=== PATIENT | female | born 1935 | race Caucasian/White ===

== ENCOUNTER 2024-11-29 08:00 | Inpatient (IN) | payer MEDICARE, SELFPAY ==
[2024-11-29] VITALS (16 sets, daily range): BP systolic 88–107; BP diastolic 57–81; PULSE 79–126; RESP 17–25; TEMP 36.4–36.6; O2SAT 95–100; BMI 22.4
--- NOTE | ~2024-11-29 | XR_ITS ---
Portable chest x-ray Comparison: None Clinical History: Weakness Findings: Lungs are clear, without focal consolidation or pleural effusion. Cardiomediastinal silho uette is unremarkable. Bones and soft tissues are unremarkable. Impression: Clear lungs. Reviewed, dictated and finalized at location M. Impression: Clear lungs.
--- NOTE | ~2024-11-29 | CT_ITS ---
Clinical Indication: Trauma, abdominal pain CT Scan of the Chest, Abdomen, and Pelvis with Contrast: Technique: Contiguous sections were acquired throughout the chest, abdomen, and pelvis after intraven ous administration of 100 cc of Omnipaque 350. Dose reduction technique was used on this scan by que guzmán automated exposure control and iterative reconstruction technique. The dose-length product (DL P) was 405.23 mGy-cm. Findings: There is no evidence of any significant mediastinal, hilar or axillary lymphadenopathy. The mediastin al soft tissues and vascular structures appear normal. There is no evidence of pleural or pericardial effusion. The lungs are clear. No pulmonary nodules or infiltrates are noted. The liver, spleen, pancreas, adrenals and right kidney are within normal limits. Suggestion of patchy decreased enhancement in the left kidney, suggestive of pyelonephritis. There is also probable hyper enhancement of the urothelium of the left ureter. Cholecystectomy clips are present. No evidence of a ortic aneurysm. No lymphadenopathy. No bowel obstruction or bowel wall thickening. There is no evidence to suggest acute appendicitis. Diffuse urinary bladder wall thickening present. No pelvic mass seen. No ascites. L1 vertebroplasty present. There are additional compression fractures of T12, L2, and L3. Possible mi nimal compression deformity of the superior endplate of T8. Impression: Findings suspicious for left pyelonephritis and probable ascending infection involving the urothelium of the left ureter. Cystitis. Multiple compression fractures, as detailed above, age-indeterminate. Correlate with clinical symptom atology. Consider MR to evaluate for acute marrow edema as indicated. Reviewed, dictated and finalized at [facility]. Impression: Findings suspicious for left pyelonephritis and probable ascending infection in volving the urothelium of the left ureter. Cystitis. Multiple compression fractures, as detailed above, age-indeterminate. Correlate with clinical symptomatology. Consider MR to evaluate for acute marrow edema a s indicated.
--- NOTE | ~2024-11-29 | CT_ITS ---
Noncontrast CT scan of the cervical spine Technique: Multiple contiguous axial [address] images of the cervical spine were obtained and rec onstructed in 2D sagittal and coronal planes on the acquisition scanner. Dose reduction technique was used on this scan by utilizing automated exposure control, adjustment of the mA and/or kV according to patient size. The dose-length product (DLP) was 165.76 mGy-cm. Clinical History: Pain Findings: No fractures or dislocations. There is advanced degenerative disc changes throughout the c ervical spine. There is extensive facet arthropathy in the cervical spine. There is probable mild nikolai ateral neural foraminal narrowing at C2-C3. There is severe right neural foraminal narrowing at C3-C4 with severe right facet arthropathy. There is severe bilateral neural foraminal narrowing at C4-C5 a nd C5 and C6 and C6-C7. No prevertebral soft tissue swelling. Impression: No fracture or subluxation of the cervical spine. Advanced degenerative spondylosis, as detailed above. Reviewed, dictated and finalized at [facility]. Impression: No fracture or subluxation of the cervical spine. Advanced degenerative spondylosis, as detailed above.
--- NOTE | ~2024-11-29 | US_ITS ---
US renal BI 12/05/2024 11:59 Procedure: Realtime transabdominal ultrasound of the kidneys and bladder. Indication: Leukocytosis. Follow-up pyelonephritis. Comparison: CT dated 11/29/2024 Findings: Renal echotexture is normal bilaterally without hydronephrosis, contour deforming mass or r enal calculus. The right kidney measures 10.5 cm and left kidney measures 13.5 cm. Bladder within no rmal limits. Impression: 1: Unremarkable renal ultrasound. No stones, masses or hydronephrosis. Reviewed, dictated and finalized at location [facility]. Impression: 1: Unremarkable renal ultrasound. No stones, masses or hydronephrosis.
--- NOTE | ~2024-11-29 | XR_ITS ---
Left Shoulder Technique: AP and scapular Y views were obtained. Clinical History: Pain Findings: No fracture or dislocation is seen. Osseous alignment is anatomic. The glenohumeral and acr omioclavicular joint spaces are preserved. Soft tissues are unremarkable. Impression: Unremarkable left shoulder radiographs. Reviewed, dictated and finalized at [facility]. Impression: Unremarkable left shoulder radiographs.
--- NOTE | ~2024-11-29 | CT_ITS ---
CT head without contrast Indication: Head injury Technique: Serial scans were obtained through the brain without the administration of contrast. Dose reduction technique was used on this scan by utilizing automated exposure control and iterative recon struction technique. The dose-length product (DLP) was 605.33 mGy-cm. Findings: There is no evidence of intracranial hemorrhage, mass lesion, or acute infarct. The ventri cles and subarachnoid spaces are dilated, consistent with moderate to advanced atrophy. Low attenuat ion regions are seen within the periventricular white matter bilaterally, likely representing changes from chronic microvascular ischemic disease. There is no evidence of edema, mass effect or midline shift. The visualized paranasal sinuses and mastoid air cells are clear. Impression: No intracranial hemorrhage, mass, or acute infarct. Atrophy and chronic white matter changes, as above. Reviewed, dictated and finalized at location . Impression: No intracranial hemorrhage, mass, or acute infarct. Atrophy and chronic white matter changes, as above.
--- NOTE | 2024-11-29 08:11 | ECG_ITS ---
Test Date: 2024-11-29 08:22:16 Measurements Intervals [place] Rate: 127 P: 0 DE: 0 QRS: -26 QRSD: 92 T: 94 QT: 334 QTc: 486 Interpretive Statements ATRIAL FIBRILLATION WITH RAPID VENTRICULAR RESPONSE BORDERLINE LEFT AXIS DEVIATION [QRS AXIS < -20] NONSPECIFIC ST & T-WAVE ABNORMALITY No previous ECG available for comparison Electronically Signed On 11-29-2024 14:06:42 CDT by Tomas Dooley M.D.
--- OUTSIDE RECORDS SUMMARY | 2024-11-29 08:17 | XMS_ITS | Clinical Summary ---
Author Organization [facility] Address [address] [place] [address] Care Team Providers Care Investment Officer Name Role Phone Eldon Mike MD Primary Care Provider [phone] Source Comments [facility],non-owned Affiliates and Associated Physician Practices is amultiple site organization consisting of ambulatory clinics and hospital sitesin [place], [place], [place] and [place]. This disclosure is being madepursuant to the Care Everywhere program and may not contain all information available regarding this patient. Last updated 18.[employer] [facility] Allergies No known active allergies Medications * This document contains information received from the source organization and may not represent a complete record from that organization. * Be aware that medications may not be up to date on this document. Alwaysverify current medications with the patient. 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 Active fluticasone propionate (FLONASE) 50 MCG/ACT nasal sprayIndicatio ns:Allergic Rhinitis Oxly 2 sprays into each nostril once daily Reasons: Allergic Rhinitis Active levothyroxine (SYNTHROID) 100 MCG tabletIndicati ons:Hypothyroi dism Take 100 mcg by mouth daily before breakfast Reasons: Underactive Thyroid Active metoprolol tartrate (LOPRESSOR) 25 MG tabletIndicati ons:Hypertensi on Take 25 mg by mouth 2 times daily Reasons: High Blood Pressure Disorder Active omeprazole (PRILOSEC) 20 MG capsuleIndicat ions:Heartburn Take 20 mg by mouth once daily as needed for Heartburn Reasons: Heartburn Active traMADol (ULTRAM) 50 MG tabletIndicati ons:chronic pain, right shoulder Take 50 mg by mouth 2 times daily as needed for Pain Reasons: chronic pain, right shoulder Active pravastatin (PRAVACHOL) 20 MG tabletIndicati ons:Hypertrigl yceridemia Take 20 mg by mouth once daily Reasons: High Amount of Triglycerides in the Blood Active QUEtiapine (SEROQUEL) 100 MG tabletIndicati ons:Depression /Psychosis Take 1 tablet by mouth at bedtime Reasons: Depression/Psycho sis 30 tablet 1 0 Active melatonin 3 MG tabletIndicati ons:Insomnia Take 1 tablet by mouth at bedtime Reasons: Trouble Sleeping 30 tablet 1 0 Active Active Problems Problem Noted Date Diagnosed Date Primary insomnia 04/05/2020 Moderate episode of recurrent major depressive d isorder 04/05/2020 Mild cognitive impairment 04/04/2020 Social History Tobacco Use Types Packs/Day Years Used Date Smoking Tobacco: Former Smokeless Tobacco: Never Alcohol Use Standard Drinks/Week Comments Not Currently 0 (1 standard drink = 0.6 oz pur e alcohol) Comments Unknown Sex and Gender Information Value Date Recorded Sex Assigned at Not on file Legal Sex Female 12:59 PM CDT Gender Identity Not on file Sexual Orientation Not on file Last Filed Vital Signs Vital Sign Reading Time Taken Comments Blood Pressure 109/42 04/09/2020 7:21 AM CDT Pulse 72 04/09/2020 7:21 AM CDT Temperature 36.7 C (98 F) 04/09/2020 7:21 AM CDT Respiratory Rate 16 04/09/2020 7:21 AM CDT Oxygen Saturation 95% 04/09/2020 7:21 AM CDT Inhaled Oxygen Concentration - - Weight 62.6 kg (138 lb) 04/06/2020 8:04 AM CDT Height 154.9 cm (5' 1) 04/06/2020 8:04 AM CDT Body Mass Index 26.07 04/06/2020 8:04 AM CDT Plan of Treatment Health Maintenance Due Date Last Done Comments BONE DENSITY TESTING 1934 DTAP/TDAP/TD VACCINES (1 - Tdap) 1953 PNEUMOCOCCAL VACCINE 50+ (1 of 1 - PCV) 1984 ZOSTER VACCINE (1 of 2) 1984 Respiratory Syncytial Virus (RSV) Vaccine Pt: or over 60 yrs (1 - 1-dose 75+ series) 2009 COVID-19 VACCINE (1 - 2023- season) 2024 DEPRESSION SCREENING 07/06/2024 INFLUENZA VACCINE (Season Ended) 2025 03/22/2020, 06/01/2019, 03/23/2018, Additional history exists HEPATITIS B VACCINE Aged Out No longe r eligible based on patient's age to complete this topic HIB VACCINE Aged Out No longer eligi ble based on patient's age to complete this topic HPV VACCINE Aged Out No longer eligi ble based on patient's age to complete this topic MENINGOCOCCAL (Group B) VACCINE SHARED DECISION-MAKING Aged Out No longer eligible based on patient's age to complete this topic MENINGOCOCCAL GROUPS A/C/Y/W VACCINE Aged Out No longer eligible based on patient's age to complete this topic [place] [address] MEDICARE Advance Directives * Full Code (Latest Code Status on File) Date Activated Date Inactivated Comments 04/04/2020 6:25 PM 04/09/2020 2:47 PM Care Teams Investment Officer Relationship Specialty Start Date End Date Eldon Mike MD PCP - General Internal Medicine 04/02/20
[2024-11-29] MEDS: SODIUM CHLORIDE 0.9% IV 1,000 ML 999 ML IV CONT ×2 (08:29→10:41)
[2024-11-29 08:44] LABS: Basophils Absolute Auto 0.1 K/mm3 (0.0-0.1); Basophils Percent Auto 0.4 % (0.2-1.2); Eosinophils Absolute Auto 0.1 K/mm3 (0-0.3); Eosinophils Percent Auto 0.8 % (0-4.4); Hematocrit 32.1 % (37.0-47.0); Hemoglobin 10.1 g/dL (12.0-15.0); Immature Granulocyte Absolute 0.93 K/mm3 (0.00-0.031); Immature Granulocyte Percent A 6.4 % (0-0.5); Lymphocytes Absolute Auto 2.92 K/mm3 (0.9-3.2); Lymphocytes Percent Auto 20.2 % (18.3-44.2); Mean Corpuscular HGB Conc 31.5 g/dl (32-36); Mean Corpuscular Hemoglobin 31.8 pg (26-34); Mean Corpuscular Volume 100.9 fl (80-100); Mean Platelet Volume 12.8 fl (7.4-10.4); Monocytes Absolute Auto 1.5 K/mm3 (0.1-0.6); Monocytes Percent Auto 10.2 % (2.6-8.5); Neutrophils Absolute Auto 8.9 K/mm3 (1.3-6.7); Platelet Count Result 504 k/mm3 (150-375); Red Blood Count 3.18 M/mm3 (4.2-5.4); Red Cell Distribution Width 18.1 % (11.5-14.5); White Blood Count 14.5 K/mm3 (4.5-10.0)
[2024-11-29 08:55] LABS: INR 1.1; Prothrombin Time 14.9 Seconds (11.1-14.7)
[2024-11-29 08:56] LABS: Partial Thromboplastin Time 30.7 Seconds (22.3-36.8)
[2024-11-29 09:00] LABS: Lactic Acid Reflex 1.3 mmol/L (0.7-2.0)
[2024-11-29 09:01] LABS: Alanine Aminotransferase 75 U/L (6-35); Alkaline Phosphatase 168 U/L (38-126); Anion Gap 11 mmol/L (4-12); Aspartate Amino Transferase 37 U/L (14-36); Bilirubin,Total 0.5 mg/dL (0.2-1.3); Blood Urea Nitrogen 39 mg/dL (7-17); Carbon Dioxide 24 mmol/L (22-30); Chloride 104 mmol/L (98-107); Creatine Kinase 42 U/L (30-135); Estimated Glomerular Filt Rate 44; Glucose 118 mg/dL (65-110); Magnesium 2.5 mg/dL (1.6-2.3); Potassium 3.5 mmol/L (3.4-5.0); Sodium 139 mmol/L (137-145)
[2024-11-29 09:12] LABS: Anisocytosis 1+; Hypochromasia 1+; Ovalocytes 2+; Platelet Estimate Increased (Adequate); Poikilocytosis 1+; Troponin I 0.024 ng/mL (0.000-0.034)
[2024-11-29 09:13] LABS: Acanthocytes 1+; Burr Cells 1+; Crenated RBC 1+; Schistocytes Rare
[2024-11-29 09:24] LABS: Influenza A QL RT-PCR Negative (Negative); Influenza B QL RT-PCR Negative (Negative); RSV RNA, RT-PCR Negative (Negative); SARS-CoV-2 RNA PCR Negative (Negative)
[2024-11-29 09:27] LABS: Add Urine Microscopic? YES; Appearance Urine Turbid (Clear); Bacteria Urine 4+ /hpf; Bilirubin Urine Negative (Negative); Blood Urine 1+ (Negative); Color Urine Yellow (Yellow); Glucose Urine UA Negative (Negative); Ketones Urine Negative (Negative); Leukocyte Esterase Ur 3+ LEU/UL (Negative); Nitrate Urine Negative (Negative); Protein Urine 2+ mg/dL (Negative); RBC Urine 0-2 /hpf (0-2); Specific Grav Ur 1.015 (1.001-1.035); Squamous Epithelial Cell Urine None Seen /hpf (Few); WBC Urine >100 /hpf (0-3); pH Urine 5.5 (5.0-9.0)
[2024-11-29 10:11] LABS: Procalcitonin 0.3 ng/mL
--- NOTE | 2024-11-29 10:42 | ED.GENADULT ---
HPI - General Adult General Chief complaint: Fall Stated complaint: SHOULDER PAIN POST FALL Time Seen by Provider: 11/29/24 08:03 History of Present Illness HPI narrative: Patient 88-year-old female who presents emergency department with chief complaint of being drowsy and falling out of bed this morning patient reports that she has been drowsy and not feeling well patient does report that she is on anticoagulants has history of atrial fibrillation Related Data Allergies Allergy/AdvReac Type Severity Reaction Status Date / Time No Known Allergies Allergy Verified 11/29/24 08:11 Review of Systems Review of Systems: A 10 system review of systems was completed on the patient and is negative except for what is stated in the HPI. Nursing and ancillary documentation was reviewed. Exam Narrative: GENERAL: Frail-appearing, well-nourished, and in no acute distress. HEAD: Normocephalic, atraumatic. EYES: PERRLA and EOMI. ENT: Nares clear, no rhinorrhea or epistaxis. Mucous membranes moist. NECK: Supple. CHEST: Clear to auscultation. No respiratory distress. HEART: Regular rate and rhythm. No murmur heard. Normal peripheral pulses. ABDOMEN: Soft, nontender, nondistended, normal active bowel sounds. EXTREMITIES: Normal range of motion. No edema. SKIN: Warm, dry, no rash. NEURO: No focal deficits. Alert and oriented x3. PSYCH: Normal mood and affect. Course Vital Signs Vital signs: Vital Signs Temperature 36.4 C 11/29/24 07:53 Pulse Rate 116 H 11/29/24 07:53 Respiratory Rate 22 H 11/29/24 07:53 Blood Pressure 90/64 L 11/29/24 07:53 Pulse Oximetry 97 11/29/24 07:53 Oxygen Delivery Room Air 11/29/24 07:53 Temperature 36.4 C 11/29/24 07:53 Pulse Rate 121 H 11/29/24 10:38 Respiratory Rate 19 11/29/24 10:38 Blood Pressure 88/59 L 11/29/24 10:38 Pulse Oximetry 96 11/29/24 10:38 Oxygen Delivery Room Air 11/29/24 07:53 Medical Decision Making [facility] Narrative Medical decision making narrative: Differential diagnosis includes UTI, intracranial hemorrhage, shoulder fracture, electrolyte abnormality, dehydration Laboratory studies were obtained the patient showed a white count of 14.5 lactate was 1.3 BUN was slightly elevated at 39 creatinine is 1.15 transaminases were slightly elevated troponin 0.024 urinalysis was turbid with greater than 100 white blood cells COVID flu RSV are negative CT head showed no acute abnormality CT C-spine showed no evidence of fracture CT chest abdomen pelvis showed age-indeterminate compression fractures Vital Signs Vital Signs: Vital Signs Temperature 36.4 C 11/29/24 07:53 Pulse Rate 116 H 11/29/24 07:53 Respiratory Rate 22 H 11/29/24 07:53 Blood Pressure 90/64 L 11/29/24 07:53 Pulse Oximetry 97 11/29/24 07:53 Oxygen Delivery Room Air 11/29/24 07:53 Temperature 36.4 C 11/29/24 07:53 Pulse Rate 121 H 11/29/24 10:38 Respiratory Rate 19 11/29/24 10:38 Blood Pressure 88/59 L 11/29/24 10:38 Pulse Oximetry 96 11/29/24 10:38 Oxygen Delivery Room Air 11/29/24 07:53 Lab Data 11/29/24 08:30 11/29/24 08:30 Labs: Lab Results 11/29/24 11/29/24 11/29/24 Range/Units 08:30 08:30 09:14 WBC 14.5 H (4.5-10.0) K/mm3 RBC 3.18 L (4.2-5.4) M/mm3 Hgb 10.1 L (12.0-15.0) g/dL Hct 32.1 L (37.0-47.0) % MCV 100.9 H (80-100) fl MCH 31.8 (26-34) pg MCHC 31.5 L (32-36) g/dl RDW 18.1 H (11.5-14.5) % Plt Count 504 H (150-375) k/mm3 MPV 12.8 H (7.4-10.4) fl Immature Gran % (Auto) 6.4 H (0-0.5) % Neut % (Auto) 62.0 (45.5-73.1) % Lymph % (Auto) 20.2 (18.3-44.2) % [place] % (Auto) 10.2 H (2.6-8.5) % Eos % (Auto) 0.8 (0-4.4) % Baso % (Auto) 0.4 (0.2-1.2) % Lymph # (Auto) 2.92 (0.9-3.2) K/mm3 [place] # (Auto) 1.5 H (0.1-0.6) K/mm3 Eos # (Auto) 0.1 (0-0.3) K/mm3 Baso # (Auto) 0.1 (0.0-0.1) K/mm3 Abs Immat Gran (auto) 0.93 H (0.00-0.031) K/mm3 Absolute Neuts (auto) 8.9 H (1.3-6.7) K/mm3 Absolute Nucleated RBC 0.000 (0.0-0.012) K/mm3 Band Neutrophils % Not Reportable Nucleated RBC % 0.0 (0.0-0.2) % Platelet Estimate Increased (Adequate) Hypochromasia 1+ Poikilocytosis 1+ Anisocytosis 1+ Ovalocytes 2+ Brendan Cells 1+ Crenated Cell 1+ Acanthocytes (Spur) 1+ Schistocytes Rare PT 14.9 H (11.1-14.7) Seconds INR 1.1 APTT 30.7 (22.3-36.8) Seconds Sodium 139 (137-145) mmol/L Potassium 3.5 (3.4-5.0) mmol/L Chloride 104 (98-107) mmol/L Carbon Dioxide 24 (22-30) mmol/L Anion Gap 11 (4-12) mmol/L BUN 39 H (7-17) mg/dL Creatinine 1.15 H (0.7-1.0) mg/dL Estim Creat Clear Calc Not Reportable Estimated GFR 44 L (59 - ) Glucose 118 H (65-110) mg/dL Lactic Acid 1.3 (0.7-2.0) mmol/L Calcium 9.0 (8.4-10.2) mg/dL Magnesium 2.5 H (1.6-2.3) mg/dL Total Bilirubin 0.5 (0.2-1.3) mg/dL AST 37 H (14-36) U/L ALT 75 H (6-35) U/L Alkaline Phosphatase 168 H (38-126) U/L Total Creatine Kinase Cancelled 42 Troponin I 0.024 (0.000-0.034) ng/mL Total Protein 7.0 (6.3-8.2) g/dL Albumin 4.0 (3.5-5.1) g/dL Procalcitonin 0.3 ng/mL Urine Color Yellow (Yellow) Urine Appearance Turbid H (Clear) Urine pH 5.5 (5.0-9.0) Ur Specific [place] 1.015 (1.001-1.035) Urine Protein 2+ H (Negative) mg/dL Urine Glucose (UA) Negative (Negative) mg/dL Urine Ketones Negative (Negative) mg/dL Ur Blood (Man) 1+ H (Negative) Urine Nitrate Negative (Negative) Urine Bilirubin Negative (Negative) Urine Urobilinogen 1.0 (<2.0) mg/dL Leukocyte Esterase Rfl 3+ H (Negative) OXANA/UL Urine RBC 0-2 (0-2) /hpf Urine WBC >100 H (0-3) /hpf Ur Squamous Epith Cells None seen (Few) /hpf Urine Bacteria 4+ H /hpf Urine Casts 3-5 Influenza A (RT-PCR) Negative (Negative) Influenza B (RT-PCR) Negative (Negative) RSV (RT-PCR) Negative (Negative) SARS-CoV-2 RNA (RT-PCR) Negative (Negative) Discharge Plan Discharge Clinical Impression: Acute pyelonephritis, Falls, Generalized weakness Patient Disposition: Still a Patient Condition: Stable Patient Language: Icelandic Follow-up/Referrals: Rashid,Eldon Murry MD [Primary Care Provider] - Time of Disposition: 10:48
--- NOTE | 2024-11-29 11:21 | ECG_ITS ---
Test Date: 2024-11-29 11:32:02 Measurements Intervals [place] Rate: 103 P: 0 IN: 0 QRS: -34 QRSD: 91 T: 160 QT: 357 QTc: 468 Interpretive Statements ATRIAL FIBRILLATION WITH RAPID VENTRICULAR RESPONSE LEFT AXIS DEVIATION [QRS AXIS < -30] NONSPECIFIC ST & T-WAVE ABNORMALITY Compared to ECG 11/29/2024 08:22:16 No significant changes Electronically Signed On 11-29-2024 14:26:04 CDT by Tomas Dooley M.D.
[2024-11-29] MEDS: METOPROLOL TARTRATE INJ 5 MG/5 ML VIAL 2.5 MG IV PUSH (11:39)
--- NOTE | 2024-11-29 12:01 | PC.NURSE ---
ABX given before cultures drawn, EDP aware. This RN attempted 2x times to obtain set with no success
[2024-11-29 12:37] LABS: Troponin I 0.031 ng/mL (0.000-0.034)
--- NOTE | 2024-11-29 13:46 | PC.NURSE ---
patient bed alarm going off, upon entering patients room, patient stated she had to go to the bathroom but had wet her depends. patient depends changed and pulled up in bed. reminded that she needs to stay in bed unless someone is with her.
--- NOTE | 2024-11-29 15:50 | PC.NURSE ---
This patient, Judith Hayes, was admitted to IMU Room 205-01. Patient/family oriented to hospital policies and general routines including ID bracelet, bed and alarms, visiting hours, pain management, procedures, bathroom and other care routines, personal items, smoking policy, room service/diet, and visiting hours. Information on how to activate the Rapid Response Team has been discussed. Patient/Family are encouraged to report perceived risks to care and to ask questions if they do not understand what they are told or what they should do.
--- NOTE | 2024-11-29 15:53 | PC.NURSE ---
Unable to reach daughter, left VM.
--- NOTE | 2024-11-29 17:28 | PC.NURSE ---
Pt requested this RN to call her daughter Mei. When speaking to Mei she states they have been no contact for 1 month. Neighbor Rosa came to visit the patient and left her name and number [phone]. Rosa checks on Judith but does not think the patient has been to the DR or had any RX refills since Judith and her daughter have stopped speaking to each other. Judith has no one else around to help take care of her and lives alone.
--- NOTE | 2024-11-29 18:14 | P.HP_ITS ---
H&P: HPI History of Present Illness Date/Time: 11/29/24 18:14 Chief Complaint: Fall, Drowsy Narrative: 88 y/o F with PMH of atrial fibrillation on anticoagulation, cholecystectomy, and hysterectomy presents here with ground level fall and drowsiness. The patient presents here from home via EMS on 11/29 for further evaluation post ground level fall and for drowsiness. She reports this morning she had a fall out of bed due to her left arm giving out. She does not believe she had a head strike or loss of consciousness. Reports she fell into the mattress and had left shoulder pain She reports the drowsiness has been ongoing, reports this is chronic for her because she is up early and cant sleep. She denies accompanying dysuria, urinary frequency, abdominal pain, nausea, vomiting, diarrhea, fever or chills. She reported a history of atrial fibrillation upon arrival - reports no knowledge now, arrived with a heart rate of 116 and EKG showed AFib RVR. She reports missed morning dose of her anti-dysrhythmic. She reports chronic pain in her back, reports it has been worse since she stopped therapy. Patient lives at home alone and uses a walker and occasionally a wheelchair. Initial VS at presentation: 97.6? F, HR 116, R 22, 90/64, and 97% on RA. ED workup showed: WBC 14.5, hemoglobin 10.1 (no previous available for comparison), creatinine 1.5 and GFR 44, magnesium 2.5, initial troponin 0.024, UA consistent with UTI. Viral PCR negative. Head CT showed no intracranial hemorrhage/mass/acute infarct and atrophy/chronic white matter changes. CXR showed clear lungs. Shoulder XR of the left was unremarkable. CT of the chest/abdomen/pelvis showed findings suspicious for left pyelonephritis and probable ascending infection involving the urothelium of the left ureter, cystitis, multiple compression fractures that are age indeterminate. C-spine CT showed no fracture subluxations cervical spine and advanced degenerative spondylosis. Review of Systems Review of Systems: All systems reviewed & are unremarkable except as noted in HPI and below [facility] Past Medical History Medical History (Updated 11/29/24 @ 21:58 by Bertha Browne APRN) Hypothyroidism Surgical History Surgical History History of cholecystectomy History of hysterectomy Social History Social History Smoking status: Never smoker Second hand tobacco smoke exposure: No Alcohol intake: never Substance use: never Do You Feel Safe in your Home?: Yes Lack of Transportation: No Lack of Food: Never True Current Housing: I Have Housing Concerned About Future Housing: No Difficulty Paying Gas/Electric Bills: No Difficulty Paying for Meds: No Currently Unemployed: No Education: High School Diploma/GED Difficulty w/ Childcare or Family Care: No Spiritual care concerns: No Meds Home Medications and Allergies Home Medications ?Medication ?Instructions ?Recorded ?Confirmed ?Type atorvastatin 40 mg tablet 40 mg PO HS 11/29/24 11/29/24 History cetirizine 10 mg tablet 5 mg PO DAILY 11/29/24 11/29/24 History donepezil 10 mg tablet 20 mg PO DAILY 11/29/24 11/29/24 History duloxetine 60 mg capsule,delayed 60 mg PO DAILY 11/29/24 11/29/24 History release levothyroxine 112 mcg tablet 112 mcg PO DAILY 11/29/24 11/29/24 History lorazepam 0.5 mg tablet 0.5 mg PO TIDWM 11/29/24 11/29/24 History metoprolol succinate 25 mg 25 mg PO DAILY 11/29/24 11/29/24 History tablet,extended release 24 hr omeprazole 20 mg capsule,delayed 20 mg PO DAILY 11/29/24 11/29/24 History release oxybutynin chloride 10 mg 10 mg PO DAILY 11/29/24 11/29/24 History tablet,extended release 24 hr quetiapine 400 mg tablet 400 mg PO HS 11/29/24 11/29/24 History risperidone 0.25 mg tablet 0.25 mg PO HS 11/29/24 11/29/24 History sertraline 100 mg tablet 200 mg PO DAILY 11/29/24 11/29/24 History temazepam 30 mg capsule 30 mg PO HS 11/29/24 11/29/24 History Allergies Allergy/AdvReac Type Severity Reaction Status Date / Time No Known Allergies Allergy Verified 11/29/24 15:28 Vital Signs Vital Signs - 24 hr 11/29/24 07:53 11/29/24 10:28 11/29/24 10:38 Temperature 97.6 F Pulse Rate 116 H 126 H 121 H Respiratory Rate 22 H 17 19 Blood Pressure 90/64 L 100/73 88/59 L Pulse Oximetry 97 96 96 Oxygen Delivery Room Air 11/29/24 10:42 11/29/24 10:50 11/29/24 11:39 Temperature Pulse Rate 105 H 103 H 99 Respiratory Rate 21 H 17 Blood Pressure 96/69 L 97/80 L Pulse Oximetry 96 99 Oxygen Delivery 11/29/24 11:39 11/29/24 13:11 11/29/24 15:04 Temperature 97.6 F Pulse Rate 99 106 H 106 H Respiratory Rate 25 H 17 18 Blood Pressure 103/81 107/66 95/72 L Pulse Oximetry 100 100 98 Oxygen Delivery 11/29/24 15:20 11/29/24 15:51 11/29/24 16:00 Temperature 97.8 F Pulse Rate 115 H 79 Respiratory Rate 20 Blood Pressure 102/79 Pulse Oximetry 97 Oxygen Delivery Room Air 11/29/24 16:00 11/29/24 18:00 Temperature Pulse Rate 82 85 Respiratory Rate Blood Pressure Pulse Oximetry Oxygen Delivery Exam Const: General: comfortable and no acute distress Other: , female, elderly, nontoxic appearance HENMT: Face/Nose/Sinus: Normal nares present Mouth: Yes moist mucous mem branes Eyes: General: appearance normal, both eyes and all related structures Sclera: sclerae normal Pupils: Equal, round and reactive pupils present EOM: EOMs intact bilaterally Resp: Effort & Inspection: normal respiratory effort Auscultation: clear to auscultation bilaterally Cardio: Rate: regular rate Rhythm: abnormal rhythm Other: S1-S2 present without murmur, rub, ectopy GI: Other: Abdomen soft, nondistended, nontender. Normoactive bowel sounds in all quadrants. Skin: General skin exam: normal color and no rashes or lesions noted Wounds: no wounds Neuro: Speech: normal speech Motor exam (neuro): 5/5 motor strength present throughout Sensory Exam: normal sensation Other: A&Ox3 (could not remember place). Extrem: General: normal to inspection Psych: Mental Status: mental status grossly normal Affect: normal affect Other: Fair insight and judgment, pleasant H&P: Results Labs Labs: Short CBC 11/29/24 Range/Units 08:30 WBC 14.5 H (4.5-10.0) K/mm3 Hgb 10.1 L (12.0-15.0) g/dL Hct 32.1 L (37.0-47.0) % Plt Count 504 H (150-375) k/mm3 BMP 11/29/24 08:30 Sodium 139 Potassium 3.5 Chloride 104 Carbon Dioxide 24 BUN 39 H Creatinine 1.15 H Glucose 118 H Calcium 9.0 Cardiac Enzymes 11/29/24 11/29/24 11/29/24 Range/Units 08:30 08:30 11:59 Total Creatine Kinase Cancelled 42 Troponin I 0.024 0.031 D (0.000-0.034) ng/mL Liver Function 11/29/24 Range/Units 08:30 Total Bilirubin 0.5 (0.2-1.3) mg/dL AST 37 H (14-36) U/L ALT 75 H (6-35) U/L Alkaline Phosphatase 168 H (38-126) U/L Albumin 4.0 (3.5-5.1) g/dL Urine 11/29/24 Range/Units 09:14 Urine Color Yellow (Yellow) Urine Appearance Turbid H (Clear) Urine pH 5.5 (5.0-9.0) Ur Specific [place] 1.015 (1.001-1.035) Urine Protein 2+ H (Negative) mg/dL Urine Glucose (UA) Negative (Negative) mg/dL Assessment and Plan Assessment and plan (1) Acute pyelonephritis: Code(s): N10 - Acute pyelonephritis Status: Acute Assessment and Plan: - UA: Turbid, 2+ protein, 1+ blood, 3+ leuks, greater than 100 WBC, no epithelial cells, 4+ bacteria - UC pending - previous micro reviewed, none available - started on Ceftriaxone on 11/29 - suspect this is etiology for patient's weakness and fall (2) Atrial fibrillation: Qualifiers: Atrial fibrillation type: unspecified Qualified Code(s): I48.91 - Unspecified atrial fibrillation Code(s): I48.91 - Unspecified atrial fibrillation Status: Acute Assessment and Plan: - history of AFib, not on anticoagulation. Add SCDs. CHADSVasc: 3 - EKG, initial: AFib RVR, rate 127, borderline left axis deviation, nonspecific ST and T-wave abnormality - given metoprolol 2.5 mg IVP in ED, will continue home dose of metoprolol ER 25 mg daily - metoprolol 2.5 mg p.r.n. for heart rate sustaining greater than 120 - telemetry monitoring Plan Diet: Heart healthy GI Prophylaxis: Not currently indicated DVT Prophylaxis: SCDs IV fluids: 2L bolus Lines/Tubes: Peripheral IV Code Status: Full code Quality VTE Prophylaxis VTE prophylaxis: mechanical ordered Hospitalist MIPS Advance Care Plan I have confirmed that the patient's Advanced Care Plan is present, code status is documented, or surrogate decision maker is listed in patient medical record.: Yes Medication Reconciliation I have utilized all available resources to obtain, update and review the patients current medications (includes all prescriptions, OTC, herbals, cannabis, and nutritional supplements).: Yes
[2024-11-29] MEDS: LORazepam (*CRX) 0.5 MG TABLET PO (18:48)
[2024-11-29] MEDS: ATORVASTATIN 40 MG TABLET PO (20:24)
[2024-11-29] MEDS: risperiDONE 0.25 MG TABLET PO (20:25)
[2024-11-29] MEDS: TEMAZEPAM (*CRX) 15 MG CAPSULE 30 MG PO (20:25)
[2024-11-29] MEDS: QUEtiapine FUMARATE 100 MG TABLET 400 MG PO (20:25)
[2024-11-30] VITALS (17 sets, daily range): BP systolic 101–117; BP diastolic 54–68; PULSE 89–100; RESP 18–20; TEMP 36.6–37.1; O2SAT 93–99; BMI 22.3
[2024-11-30] MEDS: LEVOTHYROXINE SODIUM 112 MCG TABLET PO (05:09)
[2024-11-30 05:24] LABS: Hematocrit 27.6 % (37.0-47.0); Hemoglobin 8.6 g/dL (12.0-15.0); Mean Corpuscular HGB Conc 31.2 g/dl (32-36); Mean Corpuscular Hemoglobin 31.6 pg (26-34); Mean Corpuscular Volume 101.5 fl (80-100); Mean Platelet Volume 12.1 fl (7.4-10.4); Platelet Count Result 452 k/mm3 (150-375); Red Blood Count 2.72 M/mm3 (4.2-5.4); Red Cell Distribution Width 18.4 % (11.5-14.5); White Blood Count 13.6 K/mm3 (4.5-10.0)
[2024-11-30 05:45] LABS: Anion Gap 7 mmol/L (4-12); Blood Urea Nitrogen 21 mg/dL (7-17); Calcium 8.1 mg/dL (8.4-10.2); Carbon Dioxide 24 mmol/L (22-30); Chloride 106 mmol/L (98-107); Estimated Glomerular Filt Rate > 60; Glucose 97 mg/dL (65-110); Potassium 3.3 mmol/L (3.4-5.0); Sodium 137 mmol/L (137-145)
[2024-11-30 06:35] LABS: Band Neutrophils Percent 10 % (0-6); Basophils Absolute Manual 0.13 K/mm3 (0.0-0.1); Basophils Percent Manual 1 % (0-1); Eosinophils Absolute Manual 0.27 K/mm3 (0.02-0.50); Eosinophils Percent Manual 2 % (0-4); Lymphocytes Absolute Manual 2.31 K/mm3 (1.1-4.5); Metamyelocytes Percent 2 %; Monocytes Absolute Manual 1.08 K/mm3 (0.1-0.90); Monocytes Percent Manual 8 % (3-9); Neutrophils Absolute Manual 9.52 K/mm3 (1.7-7.2); Neutrophils Percent Manual 60 % (46-73); Platelet Estimate Increased (Adequate); Total Cells Counted 100
[2024-11-30 06:36] LABS: Anisocytosis 1+; Schistocytes None Seen
[2024-11-30 06:38] LABS: Acanthocytes 1+; Atypical Lymphocytes Present; Burr Cells 1+; Ovalocytes 1+
--- NOTE | 2024-11-30 08:55 | PM.IMPN ---
Progress Note: A&P Assessment and Plan (1) Acute pyelonephritis: Code(s): N10 - Acute pyelonephritis Status: Acute Assessment and Plan: - UA: Turbid, 2+ protein, 1+ blood, 3+ leuks, greater than 100 WBC, no epithelial cells, 4+ bacteria - UC pending - previous micro reviewed, none available - started on Ceftriaxone on 11/29 - suspect this is etiology for patient's weakness and fall PT OT to see (2) Atrial fibrillation: Qualifiers: Atrial fibrillation type: unspecified Qualified Code(s): I48.91 - Unspecified atrial fibrillation Code(s): I48.91 - Unspecified atrial fibrillation Status: Acute Assessment and Plan: - history of AFib, not on anticoagulation. Add SCDs. CHADSVasc: 3 - EKG, initial: AFib RVR, rate 127, borderline left axis deviation, nonspecific ST and T-wave abnormality - given metoprolol 2.5 mg IVP in ED, will continue home dose of metoprolol ER 25 mg daily - metoprolol 2.5 mg p.r.n. for heart rate sustaining greater than 120 - telemetry monitoring Plan 88 y/o F with PMH of atrial fibrillation on anticoagulation, cholecystectomy, and hysterectomy presents here with ground level fall and drowsiness. The patient presents here from home via EMS on 11/29 for further evaluation post ground level fall and for drowsiness. She reports this morning she had a fall out of bed due to her left arm giving out. She does not believe she had a head strike or loss of consciousness. Reports she fell into the mattress and had left shoulder pain She reports the drowsiness has been ongoing, reports this is chronic for her because she is up early and cant sleep. She denies accompanying dysuria, urinary frequency, abdominal pain, nausea, vomiting, diarrhea, fever or chills. She reported a history of atrial fibrillation upon arrival - reports no knowledge now, arrived with a heart rate of 116 and EKG showed AFib RVR. She reports missed morning dose of her anti-dysrhythmic. She reports chronic pain in her back, reports it has been worse since she stopped therapy. Patient lives at home alone and uses a walker and occasionally a wheelchair. Initial VS at presentation: 97.6? F, HR 116, R 22, 90/64, and 97% on RA. ED workup showed: WBC 14.5, hemoglobin 10.1 (no previous available for comparison), creatinine 1.5 and GFR 44, magnesium 2.5, initial troponin 0.024, UA consistent with UTI. Viral PCR negative. Head CT showed no intracranial hemorrhage/mass/acute infarct and atrophy/chronic white matter changes. CXR showed clear lungs. Shoulder XR of the left was unremarkable. CT of the chest/abdomen/pelvis showed findings suspicious for left pyelonephritis and probable ascending infection involving the urothelium of the left ureter, cystitis, multiple compression fractures that are age indeterminate. C-spine CT showed no fracture subluxations cervical spine and advanced degenerative spondylosis. Generalized weakness Altered mental status will hold risperidone temazepam and Seroquel. Continue Ativan as chronic benzodiazepine use UTI/left pyelonephritis Atrial fibrillation on anticoagulation Diet: Heart healthy GI Prophylaxis: Not currently indicated DVT Prophylaxis: SCDs IV fluids: 2L bolus Lines/Tubes: Peripheral IV Code Status: Full code Subjective Date/time seen: 11/30/24 08:55 Interval history: Patient weak denies any new complaints. Somnolent review of system could not be completed Review of Systems Review of Systems: ROS unobtainable: Yes unobtainable due to mental status Exam Narrative: GENERAL: Frail-appearing, well-nourished, and in no acute distress. HEAD: Normocephalic, atraumatic. EYES: PERRLA and EOMI. ENT: Nares clear, no rhinorrhea or epistaxis. Mucous membranes moist. NECK: Supple. CHEST: Clear to auscultation. No respiratory distress. HEART: Regular rate and rhythm. No murmur heard. Normal peripheral pulses. ABDOMEN: Soft, nontender, nondistended, normal active bowel sounds. EXTREMITIES: Normal range of motion. No edema. SKIN: Warm, dry, no rash. NEURO: No focal deficits. Lethargic follows commands PSYCH: Flat affect Objective Data Vital Signs Vital Signs: Vital Signs - 24 hr 11/29/24 10:28 11/29/24 10:38 11/29/24 10:42 Temperature Pulse Rate 126 H 121 H 105 H Respiratory Rate 17 19 21 H Blood Pressure 100/73 88/59 L 96/69 L Pulse Oximetry 96 96 96 Oxygen Delivery Fraction of Inspired Oxygen 11/29/24 10:50 11/29/24 11:39 11/29/24 11:39 Temperature Pulse Rate 103 H 99 99 Respiratory Rate 17 25 H Blood Pressure 97/80 L 103/81 Pulse Oximetry 99 100 Oxygen Delivery Fraction of Inspired Oxygen 11/29/24 13:11 11/29/24 15:04 11/29/24 15:20 Temperature 97.6 F 97.8 F Pulse Rate 106 H 106 H 115 H Respiratory Rate 17 18 20 Blood Pressure 107/66 95/72 L 102/79 Pulse Oximetry 100 98 97 Oxygen Delivery Fraction of Inspired Oxygen 11/29/24 15:51 11/29/24 16:00 11/29/24 16:00 Temperature Pulse Rate 79 82 Respiratory Rate Blood Pressure Pulse Oximetry Oxygen Delivery Room Air Fraction of Inspired Oxygen 11/29/24 18:00 11/29/24 19:41 11/29/24 20:00 Temperature 97.8 F Pulse Rate 85 85 Respiratory Rate 18 Blood Pressure 100/71 Pulse Oximetry 95 Oxygen Delivery Room Air Fraction of Inspired Oxygen 11/29/24 20:00 11/29/24 21:21 11/29/24 22:00 Temperature Pulse Rate 85 84 87 Respiratory Rate 20 Blood Pressure Pulse Oximetry 97 Oxygen Delivery Room Air Fraction of Inspired Oxygen 21 11/29/24 23:56 11/30/24 00:00 11/30/24 00:00 Temperature 97.6 F Pulse Rate 92 91 Respiratory Rate 18 Blood Pressure 93/57 L Pulse Oximetry 99 Oxygen Delivery Room Air Fraction of Inspired Oxygen 11/30/24 02:00 11/30/24 04:00 11/30/24 04:00 Temperature Pulse Rate 96 90 Respiratory Rate Blood Pressure Pulse Oximetry Oxygen Delivery Room Air Fraction of Inspired Oxygen 11/30/24 04:10 11/30/24 06:00 11/30/24 07:53 Temperature 97.9 F 98.5 F Pulse Rate 92 95 94 Respiratory Rate 18 18 Blood Pressure 101/54 L 108/59 L Pulse Oximetry 99 93 Oxygen Delivery Fraction of Inspired Oxygen Intake/Output Intake/Output: Intake & Output 11/27/24 11/28/24 11/29/24 11/30/24 23:59 23:59 23:59 23:59 Intake Total 2740 250 Output Total 150 600 Balance 2590 -350 Meds/Results Medications: Active Medications Generic Name Dose Route Start Last Admin Trade Name Freq PRN Reason Stop Dose Admin Acetaminophen 650 mg 11/29/24 11:00 Acetaminophen 325 Mg Tablet PO Q4H PRN Mild Pain (1-3) or Fever Atorvastatin Calcium 40 mg 11/29/24 21:00 11/29/24 20:24 Atorvastatin 40 Mg Tablet PO 40 mg HS MONI Administration Donepezil HCl 20 mg 11/30/24 09:00 Donepezil Hcl 10 Mg Tablet PO DAILY MONI Duloxetine HCl 60 mg 11/30/24 09:00 Duloxetine Hcl 60 Mg Capsule.Dr PO DAILY MONI Ceftriaxone Sodium 1 gm in 50 mls @ 100 mls/hr 11/30/24 09:00 Rocephin 1 Gm/Ns 50 Ml IVPB Q24H MONI Levothyroxine Sodium 112 mcg 11/30/24 06:30 11/30/24 05:09 Levothyroxine Sodium 112 Mcg Tablet PO 112 mcg DAILY@0630 MONI Administration Loratadine 10 mg 11/30/24 09:00 Loratadine 10 Mg Tablet PO DAILY MONI Lorazepam 0.5 mg 11/29/24 18:35 11/29/24 18:48 Lorazepam (*Crx) 0.5 Mg Tablet PO 0.5 mg TIDWM MONI Administration Metoprolol Succinate 25 mg 11/30/24 09:00 Metoprolol Succinate Ext Rel 25 Mg Tabcr PO DAILY [facility] Ondansetron HCl 4 mg 11/29/24 11:00 Ondansetron Inj 4 Mg/2 Ml Vial IV PUSH Q4H PRN Nausea Oxybutynin Chloride 10 mg 11/30/24 09:00 Oxybutynin Chloride Xl 5 Mg Tab.Er.24 PO DAILY [facility] Pantoprazole Sodium 40 mg 11/30/24 09:00 Pantoprazole 40 Mg Tablet PO DAILY MONI Quetiapine Fumarate 400 mg 11/29/24 21:00 11/29/24 20:25 Quetiapine Fumarate 100 Mg Tablet PO 400 mg HS MONI Administration Risperidone 0.25 mg 11/29/24 21:00 11/29/24 20:25 Risperidone 0.25 Mg Tablet PO 0.25 mg HS MONI Administration Sertraline HCl 200 mg 11/30/24 09:00 Sertraline Hcl 50 Mg Tablet PO DAILY MONI Temazepam 30 mg 11/29/24 21:00 11/29/24 20:25 Temazepam (*Crx) 15 Mg Capsule PO 30 mg HS MONI Administration Radiology Results: ITS Impressions Head CT 11/29/24 09:33 Impression: No intracranial hemorrhage, mass, or acute infarct. Atrophy and chronic white matter changes, as above. Chest X-Ray 11/29/24 09:55 Impression: Clear lungs. Shoulder X-Ray 11/29/24 09:56 Impression: Unremarkable left shoulder radiographs. Chest/Abdomen/Pelvis CT 11/29/24 09:59 Impression: Findings suspicious for left pyelonephritis and probable ascending infection involving the urothelium of the left ureter. Cystitis. Multiple compression fractures, as detailed above, age-indeterminate. Correlate with clinical symptomatology. Consider MR to evaluate for acute marrow edema as indicated. Cervical Spine CT 11/29/24 10:04 Impression: No fracture or subluxation of the cervical spine. Advanced degenerative spondylosis, as detailed above. Labs Labs: Laboratory Results - last 24 hr 11/29/24 11/29/24 11/29/24 08:30 09:14 11:59 WBC 14.5 H RBC 3.18 L Hgb 10.1 L Hct 32.1 L MCV 100.9 H MCH 31.8 MCHC 31.5 L RDW 18.1 H Plt Count 504 H MPV 12.8 H Immature Gran % (Auto) 6.4 H Neut % (Auto) 62.0 Lymph % (Auto) 20.2 [place] % (Auto) 10.2 H Eos % (Auto) 0.8 Baso % (Auto) 0.4 Lymph # (Auto) 2.92 [place] # (Auto) 1.5 H Eos # (Auto) 0.1 Baso # (Auto) 0.1 Abs Immat Gran (auto) 0.93 H Absolute Neuts (auto) 8.9 H Absolute Nucleated RBC 0.000 Total Counted Neutrophils % (Manual) Band Neutrophils % Not Reportable Lymphocytes % (Manual) Monocytes % (Manual) Eosinophils % (Manual) Basophils % (Manual) Metamyelocytes % Nucleated RBC % 0.0 Abs Neuts (Manual) Abs Lymphs (Manual) Abs Monocytes (Manual) Absolute Eos (Manual) Abs Basophils (Manual) Atypical Lymphocytes Platelet Estimate Increased Hypochromasia 1+ Poikilocytosis 1+ Anisocytosis 1+ Ovalocytes 2+ [place] Cells 1+ Crenated Cell 1+ Acanthocytes (Spur) 1+ Schistocytes Rare PT 14.9 H INR 1.1 APTT 30.7 Sodium 139 Potassium 3.5 Chloride 104 Carbon Dioxide 24 Anion Gap 11 BUN 39 H Creatinine 1.15 H Estim Creat Clear Calc Not Reportable Estimated GFR 44 L Glucose 118 H Lactic Acid 1.3 Calcium 9.0 Magnesium 2.5 H Total Bilirubin 0.5 AST 37 H ALT 75 H Alkaline Phosphatase 168 H Total Creatine Kinase 42 Troponin I 0.024 0.031 D Total Protein 7.0 Albumin 4.0 Procalcitonin 0.3 Urine Color Yellow Urine Appearance Turbid H Urine pH 5.5 Ur Specific [place] 1.015 Urine Protein 2+ H Urine Glucose (UA) Negative Urine Ketones Negative Ur Blood (Man) 1+ H Urine Nitrate Negative Urine Bilirubin Negative Urine Urobilinogen 1.0 Leukocyte Esterase Rfl 3+ H Urine RBC 0-2 Urine WBC >100 H Ur Squamous Epith Cells None seen Urine Bacteria 4+ H Urine Casts 3-5 Influenza A (RT-PCR) Negative Influenza B (RT-PCR) Negative RSV (RT-PCR) Negative SARS-CoV-2 RNA (RT-PCR) Negative 11/30/24 04:53 WBC 13.6 H RBC 2.72 L Hgb 8.6 L Hct 27.6 L MCV 101.5 H MCH 31.6 MCHC 31.2 L RDW 18.4 H Plt Count 452 H MPV 12.1 H Immature Gran % (Auto) Not Reportable Neut % (Auto) Not Reportable Lymph % (Auto) Not Reportable [place] % (Auto) Not Reportable Eos % (Auto) Not Reportable Baso % (Auto) Not Reportable Lymph # (Auto) Not Reportable [place] # (Auto) Not Reportable Eos # (Auto) Not Reportable Baso # (Auto) Not Reportable Abs Immat Gran (auto) Not Reportable Absolute Neuts (auto) Not Reportable Absolute Nucleated RBC Not Reportable Total Counted 100 Neutrophils % (Manual) 60 Band Neutrophils % 10 H Lymphocytes % (Manual) 17.0 L Monocytes % (Manual) 8 Eosinophils % (Manual) 2 Basophils % (Manual) 1 Metamyelocytes % 2 Nucleated RBC % Not Reportable Abs Neuts (Manual) 9.52 H Abs Lymphs (Manual) 2.31 Abs Monocytes (Manual) 1.08 H Absolute Eos (Manual) 0.27 Abs Basophils (Manual) 0.13 H Atypical Lymphocytes Present Platelet Estimate Increased Hypochromasia Poikilocytosis Anisocytosis 1+ Ovalocytes 1+ [place] Cells 1+ Crenated Cell Acanthocytes (Spur) 1+ Schistocytes None seen PT INR APTT Sodium 137 Potassium 3.3 L Chloride 106 Carbon Dioxide 24 Anion Gap 7 BUN 21 H D Creatinine 0.85 Estim Creat Clear Calc Not Reportable Estimated GFR > 60 Glucose 97 Lactic Acid Calcium 8.1 L Magnesium Total Bilirubin AST ALT Alkaline Phosphatase Total Creatine Kinase Troponin I Total Protein Albumin Procalcitonin Urine Color Urine Appearance Urine pH Ur Specific [place] Urine Protein Urine Glucose (UA) Urine Ketones Ur Blood (Man) Urine Nitrate Urine Bilirubin Urine Urobilinogen Leukocyte Esterase Rfl Urine RBC Urine WBC Ur Squamous Epith Cells Urine Bacteria Urine Casts Influenza A (RT-PCR) Influenza B (RT-PCR) RSV (RT-PCR) SARS-CoV-2 RNA (RT-PCR)
[2024-11-30] MEDS: DONEPEZIL HCL 10 MG TABLET 20 MG PO (10:44)
[2024-11-30] MEDS: METOPROLOL SUCCINATE EXT REL 25 MG TABCR PO (10:44)
[2024-11-30] MEDS: DULoxetine HCL 60 MG CAPSULE.DR PO (10:44)
[2024-11-30] MEDS: SERTRALINE HCL 50 MG TABLET 200 MG PO (10:44)
[2024-11-30] MEDS: oxyBUTYnin CHLORIDE XL 5 MG TAB.ER.24 10 MG PO (10:45)
[2024-11-30] MEDS: cefTRIAXone 2 GM/NS 100 ML 2 GM/100 ML BAG IVPB (10:45)
[2024-11-30] MEDS: PANTOPRAZOLE 40 MG TABLET PO (10:46)
[2024-11-30] MEDS: LORATADINE 10 MG TABLET PO (10:46)
[2024-11-30 16:56] LABS: Alveolar/Arterial O2 Gradient 28.9 mmHg; Base Excess ABG 0.5 mEq/l (+/-2.0); Fractional Inspired Oxygen 21 %; HCO3 ABG 23.9 mEq/l (22.0-26.0); Oxygen Saturation ABG 96.5 % (95.0-100.0); Oxyhemoglobin 95.2 % THb (90.0-100.0); PO2 ABG 80.1 mmHg (80.0-100.0); PO2 FiO2 Ratio Arterial Blood 3.81 %; Total Hemoglobin 10.4 g/dL (12.0-18.0); pH ABG 7.465 (7.350-7.450)
[2024-11-30 16:58] LABS: Modified Allen's Test Pass; Site Drawn RIGHT RADIAL
[2024-11-30] MEDS: POTASSIUM CHLORIDE INJ 40 MEQ in SODIUM CHLORIDE 0.9% IV 500 ML 130 MEQ IVPB (17:26)
[2024-11-30] MEDS: ATORVASTATIN 40 MG TABLET PO (21:02)
[2024-12-01] VITALS (10 sets, daily range): BP systolic 109–136; BP diastolic 66–75; PULSE 84–91; RESP 18–20; TEMP 36.4–36.8; O2SAT 95–97
[2024-12-01 05:32] LABS: Basophils Absolute Auto 0.1 K/mm3 (0.0-0.1); Basophils Percent Auto 0.6 % (0.2-1.2); Eosinophils Absolute Auto 0.2 K/mm3 (0-0.3); Eosinophils Percent Auto 1.4 % (0-4.4); Hematocrit 26.2 % (37.0-47.0); Hemoglobin 8.3 g/dL (12.0-15.0); Immature Granulocyte Absolute 1.14 K/mm3 (0.00-0.031); Immature Granulocyte Percent A 8.3 % (0-0.5); Lymphocytes Absolute Auto 2.51 K/mm3 (0.9-3.2); Lymphocytes Percent Auto 18.2 % (18.3-44.2); Mean Corpuscular HGB Conc 31.7 g/dl (32-36); Mean Corpuscular Hemoglobin 31.8 pg (26-34); Mean Corpuscular Volume 100.4 fl (80-100); Mean Platelet Volume 11.5 fl (7.4-10.4); Monocytes Absolute Auto 2.2 K/mm3 (0.1-0.6); Monocytes Percent Auto 15.6 % (2.6-8.5); Neutrophils Absolute Auto 7.7 K/mm3 (1.3-6.7); Neutrophils Percent Auto 55.9 % (45.5-73.1); Platelet Count Result 476 k/mm3 (150-375); Red Blood Count 2.61 M/mm3 (4.2-5.4); Red Cell Distribution Width 18.3 % (11.5-14.5); White Blood Count 13.8 K/mm3 (4.5-10.0)
[2024-12-01] MEDS: LEVOTHYROXINE SODIUM 112 MCG TABLET PO (05:35)
[2024-12-01 05:50] LABS: Alanine Aminotransferase 40 U/L (6-35); Albumin Level 3.2 g/dL (3.5-5.1); Alkaline Phosphatase 138 U/L (38-126); Anion Gap 6 mmol/L (4-12); Aspartate Amino Transferase 28 U/L (14-36); Bilirubin,Total 0.2 mg/dL (0.2-1.3); Blood Urea Nitrogen 13 mg/dL (7-17); Calcium 8.9 mg/dL (8.4-10.2); Carbon Dioxide 25 mmol/L (22-30); Chloride 106 mmol/L (98-107); Estimated Glomerular Filt Rate > 60; Glucose 114 mg/dL (65-110); Magnesium 1.9 mg/dL (1.6-2.3); Potassium 3.7 mmol/L (3.4-5.0); Sodium 137 mmol/L (137-145)
[2024-12-01 06:21] LABS: Acanthocytes 1+; Anisocytosis 1+; Burr Cells 1+; Ovalocytes 1+
[2024-12-01 06:24] LABS: Platelet Estimate Increased (Adequate); Schistocytes Rare; Total Cells Counted 100
[2024-12-01 06:28] LABS: Eosinophils Absolute Manual 0.27 K/mm3 (0.02-0.50); Eosinophils Percent Manual 2 % (0-4); Lymphocytes Absolute Manual 1.79 K/mm3 (1.1-4.5); Lymphocytes Percent Manual 13 % (18-44)
[2024-12-01 06:29] LABS: Monocytes Absolute Manual 1.38 K/mm3 (0.1-0.90); Monocytes Percent Manual 10 % (3-9)
[2024-12-01 06:31] LABS: Atypical Lymphocytes Present; Band Neutrophils Percent 4 % (0-6); Neutrophils Absolute Manual 10.35 K/mm3 (1.3-6.7); Neutrophils Percent Manual 71 % (46-73)
[2024-12-01] MEDS: DONEPEZIL HCL 10 MG TABLET 20 MG PO (09:10)
[2024-12-01] MEDS: oxyBUTYnin CHLORIDE XL 5 MG TAB.ER.24 10 MG PO (09:10)
[2024-12-01] MEDS: SERTRALINE HCL 50 MG TABLET 200 MG PO (09:10)
[2024-12-01] MEDS: DULoxetine HCL 60 MG CAPSULE.DR PO (09:10)
[2024-12-01] MEDS: PANTOPRAZOLE 40 MG TABLET PO (09:11)
[2024-12-01] MEDS: METOPROLOL SUCCINATE EXT REL 25 MG TABCR PO (09:11)
[2024-12-01] MEDS: cefTRIAXone 2 GM/NS 100 ML 2 GM/100 ML BAG IVPB (09:11)
[2024-12-01] MEDS: LORazepam (*CRX) 0.5 MG TABLET PO ×2 (09:11→16:59)
[2024-12-01] MEDS: LORATADINE 10 MG TABLET PO (09:11)
--- NOTE | 2024-12-01 10:09 | P.PNIM_ITS ---
Progress Note: A&P Assessment and Plan (1) Acute pyelonephritis: Code(s): N10 - Acute pyelonephritis Status: Acute Assessment and Plan: - UA: Turbid, 2+ protein, 1+ blood, 3+ leuks, greater than 100 WBC, no e pithelial cells, 4+ bacteria -urine culture Gram-negative bacilli - previous micro reviewed, none available - started on Ceftriaxone on 11/29 - suspect this is etiology for patient's weakness and fall PT OT to see (2) Atrial fibrillation: Qualifiers: Atrial fibrillation type: unspecified Qualified Code(s): I48.91 - Unspecified atrial fibrillation Code(s): I48.91 - Unspecified atrial fibrillation Status: Acute Assessment and Plan: - history of AFib, not on anticoagulation. Add SCDs. CHADSVasc: 3 - EKG, initial: AFib RVR, rate 127, borderline left axis deviation, nonspecific ST and T-wave abnormality - given metoprolol 2.5 mg IVP in ED, will continue home dose of metoprolol ER 25 mg daily - metoprolol 2.5 mg p.r.n. for heart rate sustaining greater than 120 - telemetry monitoring Plan 88 y/o F with PMH of atrial fibrillation on anticoagulation, cholecystectomy, and hysterectomy presents here with ground level fall and drowsiness. The patient presents here from home via EMS on 11/29 for further evaluation post ground level fall and for drowsiness. She reports this morning she had a fall out of bed due to her left arm giving out. She does not believe she had a head strike or loss of consciousness. Reports she fell into the mattress and had left shoulder pain She reports the drowsiness has been ongoing, reports this is chronic for her because she is up early and cant sleep. She denies accompanying dysuria, urinary frequency, abdominal pain, nausea, vomiting, diarrhea, fever or chills. She reported a history of atrial fibrillation upon arrival - reports no knowledge now, arrived with a heart rate of 116 and EKG showed AFib RVR. She reports missed morning dose of her anti-dysrhythmic. She reports chronic pain in her back, reports it has been worse since she stopped therapy. Patient lives at home alone and uses a walker and occasionally a wheelchair. Initial VS at presentation: 97.6? F, HR 116, R 22, 90/64, and 97% on RA. ED workup showed: WBC 14.5, hemoglobin 10.1 (no previous available for comparison), creatinine 1.5 and GFR 44, magnesium 2.5, initial troponin 0.024, UA consistent with UTI. Viral PCR negative. Head CT showed no intracranial hemorrhage/mass/acute infarct and atrophy/chronic white matter changes. CXR showed clear lungs. Shoulder XR of the left was unremarkable. CT of the chest/abdomen/pelvis showed findings suspicious for left pyelonephritis and probable ascending infection involving the urothelium of the left ureter, cystitis, multiple compression fractures that are age indeterminate. C-spine CT showed no fracture subluxations cervical spine and advanced degenerative spondylosis. Generalized weakness Altered mental status will hold risperidone temazepam and Seroquel. Continue Ativan as chronic benzodiazepine use. Much improved. UTI/left pyelonephritis urine culture pending Atrial fibrillation on anticoagulation Diet: Heart healthy GI Prophylaxis: Not currently indicated DVT Prophylaxis: SCDs IV fluids: 2L bolus Lines/Tubes: Peripheral IV Code Status: Full code Transfer to [facility] Subjective Date/time seen: 12/01/24 10:09 Interval history: Patient is more awake and alert today. Denies any new complaints. No fever chills. Labs reviewed. Discussed with nursing staff. Review of Systems Review of Systems: All systems reviewed & are unremarkable except as noted in HPI and below Exam Narrative: GENERAL: Frail-appearing, well-nourished, and in no acute distress. HEAD: Normocephalic, atraumatic. EYES: PERRLA and EOMI. ENT: Nares clear, no rhinorrhea or epistaxis. Mucous membranes moist. NECK: Supple. CHEST: Clear to auscultation. No respiratory distress. HEART: Regular rate and rhythm. No murmur heard. Normal peripheral pulses. ABDOMEN: Soft, nontender, nondistended, normal active bowel sounds. EXTREMITIES: Normal range of motion. No edema. SKIN: Warm, dry, no rash. NEURO: No focal deficits. Awake and alert follows commands PSYCH: Flat affect Objective Data Vital Signs Vital Signs: Vital Signs - 24 hr 11/30/24 10:44 11/30/24 11:22 11/30/24 12:00 Temperature 97.9 F Pulse Rate 96 89 94 Respiratory Rate 18 Blood Pressure 117/68 Pulse Oximetry 98 11/30/24 14:00 11/30/24 16:00 11/30/24 16:00 Temperature 98.2 F Pulse Rate 91 100 100 Respiratory Rate 20 Blood Pressure 116/57 L Pulse Oximetry 97 11/30/24 18:00 11/30/24 20:00 11/30/24 20:31 Temperature 98.8 F Pulse Rate 93 95 95 Respiratory Rate 18 Blood Pressure 117/61 Pulse Oximetry 96 11/30/24 22:00 12/01/24 00:00 12/01/24 00:21 Temperature 97.6 F Pulse Rate 93 91 89 Respiratory Rate 20 Blood Pressure 109/66 Pulse Oximetry 96 12/01/24 01:54 12/01/24 04:00 12/01/24 05:05 Temperature 97.8 F Pulse Rate 90 86 86 Respiratory Rate 20 Blood Pressure 136/71 Pulse Oximetry 97 12/01/24 06:00 12/01/24 07:30 12/01/24 09:11 Temperature 98.3 F Pulse Rate 84 87 89 Respiratory Rate 20 Blood Pressure 118/67 Pulse Oximetry 95 Intake/Output Intake/Output: Intake & Output 11/28/24 11/29/24 11/30/24 12/01/24 23:59 23:59 23:59 23:59 Intake Total 2740 1020 560 Output Total 150 1250 600 Balance 1256 -230 -29 Meds/Results Medications: Active Medications Generic Name Dose Route Start Last Admin Trade Name Freq PRN Reason Stop Dose Admin Acetaminophen 650 mg 11/29/24 11:00 Acetaminophen 325 Mg Tablet PO Q4H PRN Mild Pain (1-3) or Fever Atorvastatin Calcium 40 mg 11/29/24 21:00 11/30/24 21:02 Atorvastatin 40 Mg Tablet PO 40 mg HS MONI Administration Donepezil HCl 20 mg 11/30/24 09:00 12/01/24 09:10 Donepezil Hcl 10 Mg Tablet PO 20 mg DAILY MONI Administration Duloxetine HCl 60 mg 11/30/24 09:00 12/01/24 09:10 Duloxetine Hcl 60 Mg Capsule.Dr PO 60 mg DAILY MONI Administration Ceftriaxone Sodium 2 gm in 100 mls @ 200 mls/hr 11/30/24 09:00 12/01/24 09:11 Rocephin 2 Gm/Ns 100 Ml IVPB 200 mls/hr Q24H MONI Administration Levothyroxine Sodium 112 mcg 11/30/24 06:30 12/01/24 05:35 Levothyroxine Sodium 112 Mcg Tablet PO 112 mcg DAILY@0630 MONI Administration Loratadine 10 mg 11/30/24 09:00 12/01/24 09:11 Loratadine 10 Mg Tablet PO 10 mg DAILY MONI Administration Lorazepam 0.5 mg 11/29/24 18:35 12/01/24 09:11 Lorazepam (*Crx) 0.5 Mg Tablet PO 0.5 mg TIDWM MONI Administration Metoprolol Succinate 25 mg 11/30/24 09:00 12/01/24 09:11 Metoprolol Succinate Ext Rel 25 Mg Tabcr PO 25 mg DAILY MONI Administration Ondansetron HCl 4 mg 11/29/24 11:00 Ondansetron Inj 4 Mg/2 Ml Vial IV PUSH Q4H PRN Nausea Oxybutynin Chloride 10 mg 11/30/24 09:00 12/01/24 09:10 Oxybutynin Chloride Xl 5 Mg Tab.Er.24 PO 10 mg DAILY MONI Administration Pantoprazole Sodium 40 mg 11/30/24 09:00 12/01/24 09:11 Pantoprazole 40 Mg Tablet PO 40 mg DAILY MONI Administration Quetiapine Fumarate 400 mg 11/29/24 21:00 11/29/24 20:25 Quetiapine Fumarate 100 Mg Tablet PO 400 mg HS MONI Administration Risperidone 0.25 mg 11/29/24 21:00 11/29/24 20:25 Risperidone 0.25 Mg Tablet PO 0.25 mg HS MONI Administration Sertraline HCl 200 mg 11/30/24 09:00 12/01/24 09:10 Sertraline Hcl 50 Mg Tablet PO 200 mg DAILY MONI Administration Temazepam 30 mg 11/29/24 21:00 11/29/24 20:25 Temazepam (*Crx) 15 Mg Capsule PO 30 mg HS MONI Administration Radiology Results: ITS Impressions Head CT 11/29/24 09:33 Impression: No intracranial hemorrhage, mass, or acute infarct. Atrophy and chronic white matter changes, as above. Chest X-Ray 11/29/24 09:55 Impression: Clear lungs. Shoulder X-Ray 11/29/24 09:56 Impression: Unremarkable left shoulder radiographs. Chest/Abdomen/Pelvis CT 11/29/24 09:59 Impression: Findings suspicious for left pyelonephritis and probable ascending infection involving the urothelium of the left ureter. Cystitis. Multiple compression fractures, as detailed above, age-indeterminate. Correlate with clinical symptomatology. Consider MR to evaluate for acute marrow edema as indicated. Cervical Spine CT 11/29/24 10:04 Impression: No fracture or subluxation of the cervical spine. Advanced degenerative spondylosis, as detailed above. Labs Labs: Laboratory Results - last 24 hr 11/30/24 12/01/24 16:50 04:56 WBC 13.8 H RBC 2.61 L Hgb 8.3 L Hct 26.2 L MCV 100.4 H MCH 31.8 MCHC 31.7 L RDW 18.3 H Plt Count 476 H MPV 11.5 H Immature Gran % (Auto) 8.3 H Neut % (Auto) 55.9 Lymph % (Auto) 18.2 L [place] % (Auto) 15.6 H Eos % (Auto) 1.4 Baso % (Auto) 0.6 Lymph # (Auto) 2.51 [place] # (Auto) 2.2 H Eos # (Auto) 0.2 Baso # (Auto) 0.1 Abs Immat Gran (auto) 1.14 H Absolute Neuts (auto) 7.7 H Absolute Nucleated RBC 0.000 Total Counted 100 Neutrophils % (Manual) 71 Band Neutrophils % 4 Lymphocytes % (Manual) 13 L Monocytes % (Manual) 10 H Eosinophils % (Manual) 2 Nucleated RBC % 0.0 Abs Neuts (Manual) 10.35 H Abs Lymphs (Manual) 1.79 Abs Monocytes (Manual) 1.38 H Absolute Eos (Manual) 0.27 Atypical Lymphocytes Present Platelet Estimate Increased Anisocytosis 1+ Ovalocytes 1+ Brendan Cells 1+ Acanthocytes (Spur) 1+ Schistocytes Rare Puncture Site Right radial ABG pH 7.465 H ABG pCO2 34.0 L ABG pO2 80.1 ABG PO2/FiO2 Ratio 3.81 ABG HCO3 23.9 ABG O2 Saturation 96.5 ABG O2 Content 14.0 L ABG Base Excess 0.5 A-a Gradient 28.9 Oxyhemoglobin 95.2 Total Hemoglobin 10.4 L O2 Delivery Device Not Reportable O2 Liters/Min Not Reportable FiO2 21 Sodium 137 Potassium 3.7 Chloride 106 Carbon Dioxide 25 Anion Gap 6 BUN 13 D Creatinine 0.73 Estim Creat Clear Calc Not Reportable Estimated GFR > 60 Glucose 114 H Calcium 8.9 Magnesium 1.9 Total Bilirubin 0.2 AST 28 ALT 40 H Alkaline Phosphatase 138 H Total Protein 6.0 L Albumin 3.2 L
[2024-12-01] MEDS: ACETAMINOPHEN 325 MG TABLET 650 MG PO (11:09)
--- NOTE | 2024-12-01 14:28 | PC.NURSE ---
This patient, Judith Hayes, was transferred to [ [id number]] on 12/01/24 at 1428. Personal belongings sent with patient. Report given to [VERNON Gutierrez @ [phone] ]. Appropriate documentation sent with patient. Home medications sent with patient.
--- NOTE | 2024-12-01 14:48 | PC.NURSE ---
This patient, Judith Hayes, was received from IMU on 12/01/24 at 1440. Patient/family oriented to unit policies and routines
[2024-12-01] MEDS: ATORVASTATIN 40 MG TABLET PO (20:16)
[2024-12-01] MEDS: risperiDONE 0.25 MG TABLET PO (21:45)
[2024-12-01] MEDS: QUEtiapine FUMARATE 100 MG TABLET 400 MG PO (21:45)
[2024-12-02] MEDS: LEVOTHYROXINE SODIUM 112 MCG TABLET PO (06:06)
[2024-12-02] MEDS: oxyBUTYnin CHLORIDE XL 5 MG TAB.ER.24 10 MG PO (08:32)
[2024-12-02] MEDS: DULoxetine HCL 60 MG CAPSULE.DR PO (08:32)
[2024-12-02 08:33] VITALS: PULSE 86
[2024-12-02] MEDS: PANTOPRAZOLE 40 MG TABLET PO (08:33)
[2024-12-02] MEDS: SERTRALINE HCL 50 MG TABLET 200 MG PO (08:33)
[2024-12-02] MEDS: DONEPEZIL HCL 10 MG TABLET 20 MG PO (08:33)
[2024-12-02] MEDS: LORATADINE 10 MG TABLET PO (08:33)
[2024-12-02] MEDS: LORazepam (*CRX) 0.5 MG TABLET PO ×3 (08:33→17:08)
[2024-12-02] MEDS: METOPROLOL SUCCINATE EXT REL 25 MG TABCR PO (08:33)
[2024-12-02] MEDS: cefTRIAXone 2 GM/NS 100 ML 2 GM/100 ML BAG IVPB (08:33)
--- NOTE | 2024-12-02 11:36 | PCPTNOTE ---
Patient refused treatment this session due to pain and reported she did not want to work with PT until she got her pain medication. RN aware.
[2024-12-02] MEDS: ACETAMINOPHEN 325 MG TABLET 650 MG PO (11:38)
--- NOTE | 2024-12-02 11:54 | P.PNIM_ITS ---
Progress Note: A&P Assessment and Plan (1) Acute pyelonephritis: Code(s): N10 - Acute pyelonephritis Status: Acute (2) Atrial fibrillation: Qualifiers: Atrial fibrillation type: unspecified Qualified Code(s): I48.91 - Unspecified atrial fibrillation Code(s): I48.91 - Unspecified atrial fibrillation Status: Acute Plan 88 y/o F with PMH of atrial fibrillation on anticoagulation, cholecystectomy, and hysterectomy presents here with ground level fall and drowsiness. The patient presents here from home via EMS on 11/29 for further evaluation post ground level fall and for drowsiness. She reports this morning she had a fall o ut of bed due to her left arm giving out. She does not believe she had a head strike or loss of consciousness. Reports she fell into the mattress and had left shoulder pain She reports the drowsiness has been ongoing, reports this is chronic for her because she is up early and cant sleep. She denies accompanying dysuria, urinary frequency, abdominal pain, nausea, vomiting, diarrhea, fever or chills. She reported a history of atrial fibrillation upon arrival - reports no knowledge now, arrived with a heart rate of 116 and EKG showed AFib RVR. She reports missed morning dose of her anti-dysrhythmic. She reports chronic pain in her back, reports it has been worse since she stopped therapy. Patient lives at home alone and uses a walker and occasionally a wheelchair. Initial VS at presentation: 97.6? F, HR 116, R 22, 90/64, and 97% on RA. ED workup showed: WBC 14.5, hemoglobin 10.1 (no previous available for comparison), creatinine 1.5 and GFR 44, magnesium 2.5, initial troponin 0.024, UA consistent with UTI. Viral PCR negative. Head CT showed no intracranial hemorrhage/mass/acute infarct and atrophy/chronic white matter changes. CXR showed clear lungs. Shoulder XR of the left was unremarkable. CT of the chest/abdomen/pelvis showed findings suspicious for left pyelonephritis and probable ascending infection involving the urothelium of the left ureter, cystitis, multiple compression fractures that are age indeterminate. C-spine CT showed no fracture subluxations cervical spine and advanced degenerative spondylosis. Generalized weakness Altered mental status will hold risperidone temazepam and Seroquel. Continue Ativan as chronic benzodiazepine use. Much improved. UTI/left pyelonephritis urine culture with E coli. Continue on IV. No oral antibiotics option Atrial fibrillation on anticoagulation Diet: Heart healthy GI Prophylaxis: Not currently indicated DVT Prophylaxis: SCDs Lines/Tubes: Peripheral IV Code Status: Full code Subjective Date/time seen: 12/02/24 11:54 Interval history: No overnight events. No new complaints. Working with therapy. No nausea vomiting Review of Systems Review of Systems: All systems reviewed & are unremarkable except as noted in HPI and below Exam Narrative: GENERAL: Frail-appearing, well-nourished, and in no acute distress. HEAD: Normocephalic, atraumatic. EYES: PERRLA and EOMI. ENT: Nares clear, no rhinorrhea or epistaxis. Mucous membranes moist. NECK: Supple. CHEST: Clear to auscultation. No respiratory distress. HEART: Regular rate and rhythm. No murmur heard. Normal peripheral pulses. ABDOMEN: Soft, nontender, nondistended, normal active bowel sounds. EXTREMITIES: Normal range of motion. No edema. SKIN: Warm, dry, no rash. NEURO: No focal deficits. Awake and alert follows commands PSYCH: Flat affect Objective Data Vital Signs Vital Signs: Vital Signs - 24 hr 12/01/24 20:00 12/01/24 22:19 12/02/24 08:30 Temperature 97.5 F L Pulse Rate 89 Respiratory Rate 18 Blood Pressure 113/75 Pulse Oximetry 97 Oxygen Delivery Room Air Room Air 12/02/24 08:33 Temperature Pulse Rate 86 Respiratory Rate Blood Pressure Pulse Oximetry Oxygen Delivery Intake/Output Intake/Output: Intake & Output 11/29/24 11/30/24 12/01/24 12/02/24 23:59 23:59 23:59 23:59 Intake Total 2740 1020 1020 977 Output Total 150 1250 600 Balance 2590 -230 420 977 Meds/Results Medications: Active Medications Generic Name Dose Route Start Last Admin Trade Name Freq PRN Reason Stop Dose Admin Acetaminophen 650 mg 11/29/24 11:00 12/02/24 11:38 Acetaminophen 325 Mg Tablet PO 650 mg Q4H PRN Administration Mild Pain (1-3) or Fever Atorvastatin Calcium 40 mg 11/29/24 21:00 12/01/24 20:16 Atorvastatin 40 Mg Tablet PO 40 mg HS MONI Administration Donepezil HCl 20 mg 11/30/24 09:00 12/02/24 08:33 Donepezil Hcl 10 Mg Tablet PO 20 mg DAILY MONI Administration Duloxetine HCl 60 mg 11/30/24 09:00 12/02/24 08:32 Duloxetine Hcl 60 Mg Capsule.Dr PO 60 mg DAILY MONI Administration Ceftriaxone Sodium 2 gm in 100 mls @ 200 mls/hr 11/30/24 09:00 12/02/24 09:03 Rocephin 2 Gm/Ns 100 Ml IVPB Infused Q24H MONI Infusion Levothyroxine Sodium 112 mcg 11/30/24 06:30 12/02/24 06:06 Levothyroxine Sodium 112 Mcg Tablet PO 112 mcg DAILY@0630 MONI Administration Loratadine 10 mg 11/30/24 09:00 12/02/24 08:33 Loratadine 10 Mg Tablet PO 10 mg DAILY MONI Administration Lorazepam 0.5 mg 11/29/24 18:35 12/02/24 11:38 Lorazepam (*Crx) 0.5 Mg Tablet PO 0.5 mg TIDWM MONI Administration Metoprolol Succinate 25 mg 11/30/24 09:00 12/02/24 08:33 Metoprolol Succinate Ext Rel 25 Mg Tabcr PO 25 mg DAILY MONI Administration Ondansetron HCl 4 mg 11/29/24 11:00 Ondansetron Inj 4 Mg/2 Ml Vial IV PUSH Q4H PRN Nausea Oxybutynin Chloride 10 mg 11/30/24 09:00 12/02/24 08:32 Oxybutynin Chloride Xl 5 Mg Tab.Er.24 PO 10 mg DAILY MONI Administration Pantoprazole Sodium 40 mg 11/30/24 09:00 12/02/24 08:33 Pantoprazole 40 Mg Tablet PO 40 mg DAILY MONI Administration Quetiapine Fumarate 400 mg 11/29/24 21:00 12/01/24 21:45 Quetiapine Fumarate 100 Mg Tablet PO 400 mg HS MONI Administration Risperidone 0.25 mg 11/29/24 21:00 12/01/24 21:45 Risperidone 0.25 Mg Tablet PO 0.25 mg HS MONI Administration Sertraline HCl 200 mg 11/30/24 09:00 12/02/24 08:33 Sertraline Hcl 50 Mg Tablet PO 200 mg DAILY MONI Administration Temazepam 30 mg 11/29/24 21:00 11/29/24 20:25 Temazepam (*Crx) 15 Mg Capsule PO 30 mg HS MONI Administration Radiology Results: ITS Impressions Head CT 11/29/24 09:33 Impression: No intracranial hemorrhage, mass, or acute infarct. Atrophy and chronic white matter changes, as above. Chest X-Ray 11/29/24 09:55 Impression: Clear lungs. Shoulder X-Ray 11/29/24 09:56 Impression: Unremarkable left shoulder radiographs. Chest/Abdomen/Pelvis CT 11/29/24 09:59 Impression: Findings suspicious for left pyelonephritis and probable ascending infection involving the urothelium of the left ureter. Cystitis. Multiple compression fractures, as detailed above, age-indeterminate. Correlate with clinical symptomatology. Consider MR to evaluate for acute marrow edema as indicated. Cervical Spine CT 11/29/24 10:04 Impression: No fracture or subluxation of the cervical spine. Advanced degenerative spondylosis, as detailed above.
[2024-12-02 12:15] LABS: Basophils Absolute Auto 0.1 K/mm3 (0.0-0.1); Basophils Percent Auto 0.6 % (0.2-1.2); Eosinophils Absolute Auto 0.2 K/mm3 (0-0.3); Eosinophils Percent Auto 1.8 % (0-4.4); Hematocrit 26.2 % (37.0-47.0); Hemoglobin 8.3 g/dL (12.0-15.0); Immature Granulocyte Absolute 0.96 K/mm3 (0.00-0.031); Immature Granulocyte Percent A 7.6 % (0-0.5); Lymphocytes Absolute Auto 2.14 K/mm3 (0.9-3.2); Lymphocytes Percent Auto 16.9 % (18.3-44.2); Mean Corpuscular HGB Conc 31.7 g/dl (32-36); Mean Corpuscular Hemoglobin 31.9 pg (26-34); Mean Corpuscular Volume 100.8 fl (80-100); Mean Platelet Volume 11.4 fl (7.4-10.4); Monocytes Percent Auto 15.8 % (2.6-8.5); Neutrophils Absolute Auto 7.3 K/mm3 (1.3-6.7); Neutrophils Percent Auto 57.3 % (45.5-73.1); Nucleated Red Blood Cells Perc 0.2 % (0.0-0.2); Platelet Count Result 456 k/mm3 (150-375); Red Cell Distribution Width 18.1 % (11.5-14.5); White Blood Count 12.7 K/mm3 (4.5-10.0)
[2024-12-02 12:33] LABS: Anion Gap 7 mmol/L (4-12); Blood Urea Nitrogen 14 mg/dL (7-17); Calcium 8.7 mg/dL (8.4-10.2); Carbon Dioxide 30 mmol/L (22-30); Chloride 101 mmol/L (98-107); Estimated Glomerular Filt Rate > 60; Glucose 127 mg/dL (65-110); Magnesium 1.8 mg/dL (1.6-2.3); Potassium 3.7 mmol/L (3.4-5.0); Sodium 138 mmol/L (137-145)
[2024-12-02 12:35] LABS: Platelet Estimate Slightly Increased (Adequate)
[2024-12-02 12:37] LABS: Acanthocytes 1+; Anisocytosis 1+; Burr Cells 1+; Schistocytes None Seen
[2024-12-02 14:00] VITALS: BP 130/42; PULSE 83; RESP 16; TEMP 36.3; O2SAT 95
[2024-12-02] MEDS: ATORVASTATIN 40 MG TABLET PO (20:58)
[2024-12-02] MEDS: QUEtiapine FUMARATE 100 MG TABLET 400 MG PO (20:58)
[2024-12-02] MEDS: risperiDONE 0.25 MG TABLET PO (20:58)
[2024-12-02 22:00] VITALS: BP 133/75; PULSE 82; RESP 16; TEMP 36.3; O2SAT 95
[2024-12-03 05:40] LABS: Basophils Absolute Auto 0.1 K/mm3 (0.0-0.1); Basophils Percent Auto 0.6 % (0.2-1.2); Eosinophils Absolute Auto 0.4 K/mm3 (0-0.3); Eosinophils Percent Auto 3.1 % (0-4.4); Hematocrit 26.4 % (37.0-47.0); Hemoglobin 8.2 g/dL (12.0-15.0); Immature Granulocyte Absolute 0.88 K/mm3 (0.00-0.031); Immature Granulocyte Percent A 7.7 % (0-0.5); Lymphocytes Absolute Auto 2.61 K/mm3 (0.9-3.2); Lymphocytes Percent Auto 22.7 % (18.3-44.2); Mean Corpuscular HGB Conc 31.1 g/dl (32-36); Mean Corpuscular Hemoglobin 31.2 pg (26-34); Mean Corpuscular Volume 100.4 fl (80-100); Mean Platelet Volume 11.4 fl (7.4-10.4); Monocytes Absolute Auto 1.7 K/mm3 (0.1-0.6); Neutrophils Absolute Auto 5.9 K/mm3 (1.3-6.7); Neutrophils Percent Auto 50.9 % (45.5-73.1); Nucleated Red Blood Cells Perc 0.3 % (0.0-0.2); Platelet Count Result 460 k/mm3 (150-375); Red Blood Count 2.63 M/mm3 (4.2-5.4); Red Cell Distribution Width 18.2 % (11.5-14.5); White Blood Count 11.5 K/mm3 (4.5-10.0)
[2024-12-03 05:59] LABS: Alanine Aminotransferase 25 U/L (6-35); Alkaline Phosphatase 118 U/L (38-126); Anion Gap 3 mmol/L (4-12); Aspartate Amino Transferase 25 U/L (14-36); Bilirubin,Total 0.2 mg/dL (0.2-1.3); Blood Urea Nitrogen 18 mg/dL (7-17); Calcium 9.1 mg/dL (8.4-10.2); Carbon Dioxide 33 mmol/L (22-30); Chloride 103 mmol/L (98-107); Estimated Glomerular Filt Rate > 60; Glucose 100 mg/dL (65-110); Potassium 4.1 mmol/L (3.4-5.0); Sodium 139 mmol/L (137-145)
[2024-12-03 06:00] VITALS: BP 102/48; PULSE 84; RESP 16; TEMP 36.6; O2SAT 95
[2024-12-03 06:04] LABS: Anisocytosis 1+; Platelet Estimate Adequate (Adequate); Schistocytes Rare
[2024-12-03 06:05] LABS: Ovalocytes 1+
[2024-12-03] MEDS: LEVOTHYROXINE SODIUM 112 MCG TABLET PO (06:21)
[2024-12-03] MEDS: LORazepam (*CRX) 0.5 MG TABLET PO ×3 (08:56→17:14)
[2024-12-03] MEDS: PANTOPRAZOLE 40 MG TABLET PO (08:56)
[2024-12-03] MEDS: oxyBUTYnin CHLORIDE XL 5 MG TAB.ER.24 10 MG PO (08:56)
[2024-12-03] MEDS: SERTRALINE HCL 50 MG TABLET 200 MG PO (08:56)
[2024-12-03 08:57] VITALS: PULSE 84
[2024-12-03] MEDS: LORATADINE 10 MG TABLET PO (08:57)
[2024-12-03] MEDS: METOPROLOL SUCCINATE EXT REL 25 MG TABCR PO (08:57)
[2024-12-03] MEDS: DONEPEZIL HCL 10 MG TABLET 20 MG PO (08:57)
[2024-12-03 09:00] VITALS: O2SAT 95
[2024-12-03] MEDS: cefTRIAXone 2 GM/NS 100 ML 2 GM/100 ML BAG IVPB (09:00)
[2024-12-03] MEDS: DULoxetine HCL 60 MG CAPSULE.DR PO (09:09)
--- NOTE | 2024-12-03 12:39 | P.PNIM_ITS ---
Progress Note: A&P Assessment and Plan (1) Acute pyelonephritis: Code(s): N10 - Acute pyelonephritis Status: Acute (2) Atrial fibrillation: Qualifiers: Atrial fibrillation type: unspecified Qualified Code(s): I48.91 - Unspecified atrial fibrillation Code(s): I48.91 - Unspecified atrial fibrillation Status: Acute Plan 88 y/o F with PMH of atrial fibrillation on anticoagulation, cholecystectomy, and hysterectomy presents here with ground level fall and drowsiness. The patient presents here from home via EMS on 11/29 for further evaluation post ground level fall and for drowsiness. She reports this morning she had a fall o ut of bed due to her left arm giving out. She does not believe she had a head strike or loss of consciousness. Reports she fell into the mattress and had left shoulder pain She reports the drowsiness has been ongoing, reports this is chronic for her because she is up early and cant sleep. She denies accompanying dysuria, urinary frequency, abdominal pain, nausea, vomiting, diarrhea, fever or chills. She reported a history of atrial fibrillation upon arrival - reports no knowledge now, arrived with a heart rate of 116 and EKG showed AFib RVR. She reports missed morning dose of her anti-dysrhythmic. She reports chronic pain in her back, reports it has been worse since she stopped therapy. Patient lives at home alone and uses a walker and occasionally a wheelchair. Initial VS at presentation: 97.6? F, HR 116, R 22, 90/64, and 97% on RA. ED workup showed: WBC 14.5, hemoglobin 10.1 (no previous available for comparison), creatinine 1.5 and GFR 44, magnesium 2.5, initial troponin 0.024, UA consistent with UTI. Viral PCR negative. Head CT showed no intracranial hemorrhage/mass/acute infarct and atrophy/chronic white matter changes. CXR showed clear lungs. Shoulder XR of the left was unremarkable. CT of the chest/abdomen/pelvis showed findings suspicious for left pyelonephritis and probable ascending infection involving the urothelium of the left ureter, cystitis, multiple compression fractures that are age indeterminate. C-spine CT showed no fracture subluxations cervical spine and advanced degenerative spondylosis. Generalized weakness Altered mental status will hold risperidone temazepam and Seroquel. Continue Ativan as chronic benzodiazepine use. Much improved. UTI/left pyelonephritis urine culture with E coli. Continue on IV. No oral antibiotics option Atrial fibrillation on anticoagulation Diet: Heart healthy GI Prophylaxis: Not currently indicated DVT Prophylaxis: SCDs Lines/Tubes: Peripheral IV Code Status: Full code Subjective Date/time seen: 12/03/24 12:39 Interval history: No overnight events. No new complaints. No shortness of breath or chest pain. Tolerating IV antibiotics. Review of Systems Review of Systems: All systems reviewed & are unremarkable except as noted in HPI and below Exam Narrative: GENERAL: Frail-appearing, well-nourished, and in no acute distress. HEAD: Normocephalic, atraumatic. EYES: PERRLA and EOMI. ENT: Nares clear, no rhinorrhea or epistaxis. Mucous membranes moist. NECK: Supple. CHEST: Clear to auscultation. No respiratory distress. HEART: Regular rate and rhythm. No murmur heard. Normal peripheral pulses. ABDOMEN: Soft, nontender, nondistended, normal active bowel sounds. EXTREMITIES: Normal range of motion. No edema. SKIN: Warm, dry, no rash. NEURO: No focal deficits. Awake and alert follows commands PSYCH: Flat affect Objective Data Vital Signs Vital Signs: Vital Signs - 24 hr 12/02/24 14:00 12/02/24 22:00 12/03/24 06:00 Temperature 97.3 F L 97.3 F L 97.9 F Pulse Rate 83 82 84 Respiratory Rate 16 16 16 Blood Pressure 130/42 L 133/75 102/48 L Pulse Oximetry 95 95 95 Oxygen Delivery 12/03/24 08:57 12/03/24 09:00 Temperature Pulse Rate 84 Respiratory Rate Blood Pressure Pulse Oximetry 95 Oxygen Delivery Room Air Intake/Output Intake/Output: Intake & Output 11/30/24 12/01/24 12/02/24 12/03/24 23:59 23:59 23:59 23:59 Intake Total 1020 1020 1934 740 Output Total 1250 600 Balance -550 683 9146 740 Meds/Results Medications: Active Medications Generic Name Dose Route Start Last Admin Trade Name Freq PRN Reason Stop Dose Admin Acetaminophen 650 mg 11/29/24 11:00 12/02/24 11:38 Acetaminophen 325 Mg Tablet PO 650 mg Q4H PRN Administration Mild Pain (1-3) or Fever Atorvastatin Calcium 40 mg 11/29/24 21:00 12/02/24 20:58 Atorvastatin 40 Mg Tablet PO 40 mg HS MONI Administration Donepezil HCl 20 mg 11/30/24 09:00 12/03/24 08:57 Donepezil Hcl 10 Mg Tablet PO 20 mg DAILY MONI Administration Duloxetine HCl 60 mg 11/30/24 09:00 12/03/24 09:09 Duloxetine Hcl 60 Mg Capsule.Dr PO 60 mg DAILY MONI Administration Ceftriaxone Sodium 2 gm in 100 mls @ 200 mls/hr 11/30/24 09:00 12/03/24 09:00 Rocephin 2 Gm/Ns 100 Ml IVPB 200 mls/hr Q24H MONI Administration Levothyroxine Sodium 112 mcg 11/30/24 06:30 12/03/24 06:21 Levothyroxine Sodium 112 Mcg Tablet PO 112 mcg DAILY@0630 MONI Administration Loratadine 10 mg 11/30/24 09:00 12/03/24 08:57 Loratadine 10 Mg Tablet PO 10 mg DAILY MONI Administration Lorazepam 0.5 mg 11/29/24 18:35 12/03/24 12:38 Lorazepam (*Crx) 0.5 Mg Tablet PO 0.5 mg TIDWM MONI Administration Metoprolol Succinate 25 mg 11/30/24 09:00 12/03/24 08:57 Metoprolol Succinate Ext Rel 25 Mg Tabcr PO 25 mg DAILY MONI Administration Ondansetron HCl 4 mg 11/29/24 11:00 Ondansetron Inj 4 Mg/2 Ml Vial IV PUSH Q4H PRN Nausea Oxybutynin Chloride 10 mg 11/30/24 09:00 12/03/24 08:56 Oxybutynin Chloride Xl 5 Mg Tab.Er.24 PO 10 mg DAILY MONI Administration Pantoprazole Sodium 40 mg 11/30/24 09:00 12/03/24 08:56 Pantoprazole 40 Mg Tablet PO 40 mg DAILY MONI Administration Quetiapine Fumarate 400 mg 11/29/24 21:00 12/02/24 20:58 Quetiapine Fumarate 100 Mg Tablet PO 400 mg HS MONI Administration Risperidone 0.25 mg 11/29/24 21:00 12/02/24 20:58 Risperidone 0.25 Mg Tablet PO 0.25 mg HS MONI Administration Sertraline HCl 200 mg 11/30/24 09:00 12/03/24 08:56 Sertraline Hcl 50 Mg Tablet PO 200 mg DAILY MONI Administration Temazepam 30 mg 11/29/24 21:00 11/29/24 20:25 Temazepam (*Crx) 15 Mg Capsule PO 30 mg HS MONI Administration Radiology Results: ITS Impressions Head CT 11/29/24 09:33 Impression: No intracranial hemorrhage, mass, or acute infarct. Atrophy and chronic white matter changes, as above. Chest X-Ray 11/29/24 09:55 Impression: Clear lungs. Shoulder X-Ray 11/29/24 09:56 Impression: Unremarkable left shoulder radiographs. Chest/Abdomen/Pelvis CT 11/29/24 09:59 Impression: Findings suspicious for left pyelonephritis and probable ascending infection involving the urothelium of the left ureter. Cystitis. Multiple compression fractures, as detailed above, age-indeterminate. Correlate with clinical symptomatology. Consider MR to evaluate for acute marrow edema as indicated. Cervical Spine CT 11/29/24 10:04 Impression: No fracture or subluxation of the cervical spine. Advanced degenerative spondylosis, as detailed above. Labs Labs: Laboratory Results - last 24 hr 12/03/24 05:20 WBC 11.5 H RBC 2.63 L Hgb 8.2 L Hct 26.4 L MCV 100.4 H MCH 31.2 MCHC 31.1 L RDW 18.2 H Plt Count 460 H MPV 11.4 H Immature Gran % (Auto) 7.7 H Neut % (Auto) 50.9 Lymph % (Auto) 22.7 [place] % (Auto) 15.0 H Eos % (Auto) 3.1 Baso % (Auto) 0.6 Lymph # (Auto) 2.61 [place] # (Auto) 1.7 H Eos # (Auto) 0.4 H Baso # (Auto) 0.1 Abs Immat Gran (auto) 0.88 H Absolute Neuts (auto) 5.9 Absolute Nucleated RBC 0.030 H Band Neutrophils % Not Reportable Nucleated RBC % 0.3 H Platelet Estimate Adequate Anisocytosis 1+ Ovalocytes 1+ Schistocytes Rare Sodium 139 Potassium 4.1 Chloride 103 Carbon Dioxide 33 H Anion Gap 3 L BUN 18 H Creatinine 0.77 Estim Creat Clear Calc Not Reportable Estimated GFR > 60 Glucose 100 Calcium 9.1 Magnesium 2.0 Total Bilirubin 0.2 AST 25 ALT 25 Alkaline Phosphatase 118 Total Protein 6.0 L Albumin 3.0 L
[2024-12-03 14:00] VITALS: BP 92/54; PULSE 83; RESP 16; TEMP 36.8; O2SAT 92
[2024-12-03] MEDS: QUEtiapine FUMARATE 100 MG TABLET 400 MG PO (20:31)
[2024-12-03] MEDS: ATORVASTATIN 40 MG TABLET PO (20:32)
[2024-12-03] MEDS: risperiDONE 0.25 MG TABLET PO (20:32)
[2024-12-03 21:16] VITALS: PULSE 90; RESP 20; O2SAT 90
[2024-12-03 22:37] VITALS: BP 100/64; PULSE 88; RESP 18; TEMP 36.5; O2SAT 96
[2024-12-04] MEDS: LEVOTHYROXINE SODIUM 112 MCG TABLET PO (05:42)
[2024-12-04 06:00] VITALS: BP 112/60; PULSE 80; RESP 16; TEMP 36.7; O2SAT 95
[2024-12-04 09:16] VITALS: PULSE 93
[2024-12-04] MEDS: PANTOPRAZOLE 40 MG TABLET PO (09:16)
[2024-12-04] MEDS: METOPROLOL SUCCINATE EXT REL 25 MG TABCR PO (09:16)
[2024-12-04] MEDS: LORazepam (*CRX) 0.5 MG TABLET PO ×3 (09:16→16:50)
[2024-12-04] MEDS: DONEPEZIL HCL 10 MG TABLET 20 MG PO (09:18)
[2024-12-04] MEDS: oxyBUTYnin CHLORIDE XL 5 MG TAB.ER.24 10 MG PO (09:18)
[2024-12-04] MEDS: LORATADINE 10 MG TABLET PO (09:18)
[2024-12-04] MEDS: cefTRIAXone 2 GM/NS 100 ML 2 GM/100 ML BAG IVPB (09:18)
[2024-12-04] MEDS: DULoxetine HCL 60 MG CAPSULE.DR PO (09:18)
[2024-12-04 09:20] VITALS: O2SAT 95
[2024-12-04] MEDS: SERTRALINE HCL 50 MG TABLET 200 MG PO (12:54)
[2024-12-04 14:00] VITALS: BP 101/58; PULSE 85; RESP 14; TEMP 36.7; O2SAT 93
--- NOTE | 2024-12-04 18:05 | P.PNIM_ITS ---
Progress Note: A&P Assessment and Plan (1) Acute pyelonephritis: Code(s): N10 - Acute pyelonephritis Status: Acute (2) Atrial fibrillation: Qualifiers: Atrial fibrillation type: unspecified Qualified Code(s): I48.91 - Unspecified atrial fibrillation Code(s): I48.91 - Unspecified atrial fibrillation Status: Acute Plan 88 y/o F with PMH of atrial fibrillation on anticoagulation, cholecystectomy, and hysterectomy presents here with ground level fall and drowsiness. The patient presents here from home via EMS on 11/29 for further evaluation post ground level fall and for drowsiness. She reports this morning she had a fall o ut of bed due to her left arm giving out. She does not believe she had a head strike or loss of consciousness. Reports she fell into the mattress and had left shoulder pain She reports the drowsiness has been ongoing, reports this is chronic for her because she is up early and cant sleep. She denies accompanying dysuria, urinary frequency, abdominal pain, nausea, vomiting, diarrhea, fever or chills. She reported a history of atrial fibrillation upon arrival - reports no knowledge now, arrived with a heart rate of 116 and EKG showed AFib RVR. She reports missed morning dose of her anti-dysrhythmic. She reports chronic pain in her back, reports it has been worse since she stopped therapy. Patient lives at home alone and uses a walker and occasionally a wheelchair. Initial VS at presentation: 97.6? F, HR 116, R 22, 90/64, and 97% on RA. ED workup showed: WBC 14.5, hemoglobin 10.1 (no previous available for comparison), creatinine 1.5 and GFR 44, magnesium 2.5, initial troponin 0.024, UA consistent with UTI. Viral PCR negative. Head CT showed no intracranial hemorrhage/mass/acute infarct and atrophy/chronic white matter changes. CXR showed clear lungs. Shoulder XR of the left was unremarkable. CT of the chest/abdomen/pelvis showed findings suspicious for left pyelonephritis and probable ascending infection involving the urothelium of the left ureter, cystitis, multiple compression fractures that are age indeterminate. C-spine CT showed no fracture subluxations cervical spine and advanced degenerative spondylosis. Generalized weakness Altered mental status will hold risperidone temazepam and Seroquel. Continue Ativan as chronic benzodiazepine use. Much improved. UTI/left pyelonephritis urine culture with E coli. Continue on IV. No oral antibiotics option. continue 11/12 anticipated course Atrial fibrillation on anticoagulation Diet: Heart healthy GI Prophylaxis: Not currently indicated DVT Prophylaxis: SCDs Lines/Tubes: Peripheral IV Code Status: Full code Subjective Date/time seen: 12/04/24 18:05 Interval history: No overnight events. No new complaints. No shortness of breath or chest pain. Tolerating IV antibiotics. Review of Systems Review of Systems: All systems reviewed & are unremarkable except as noted in HPI and below Exam Narrative: GENERAL: Frail-appearing, well-nourished, and in no acute distress. HEAD: Normocephalic, atraumatic. EYES: PERRLA and EOMI. ENT: Nares clear, no rhinorrhea or epistaxis. Mucous membranes moist. NECK: Supple. CHEST: Clear to auscultation. No respiratory distress. HEART: Regular rate and rhythm. No murmur heard. Normal peripheral pulses. ABDOMEN: Soft, nontender, nondistended, normal active bowel sounds. EXTREMITIES: Normal range of motion. No edema. SKIN: Warm, dry, no rash. NEURO: No focal deficits. Awake and alert follows commands PSYCH: Flat affect Objective Data Vital Signs Vital Signs: Vital Signs - 24 hr 12/03/24 19:38 12/03/24 21:16 12/03/24 22:37 Temperature 97.7 F Pulse Rate 90 88 Respiratory Rate 20 18 Blood Pressure 100/64 Pulse Oximetry 90 96 Oxygen Delivery Room Air Room Air Fraction of Inspired Oxygen 21 12/04/24 06:00 12/04/24 09:16 12/04/24 09:20 Temperature 98.1 F Pulse Rate 80 93 Respiratory Rate 16 Blood Pressure 112/60 Pulse Oximetry 95 95 Oxygen Delivery Room Air Fraction of Inspired Oxygen 12/04/24 14:00 Temperature 98.1 F Pulse Rate 85 Respiratory Rate 14 Blood Pressure 101/58 L Pulse Oximetry 93 Oxygen Delivery Fraction of Inspired Oxygen Intake/Output Intake/Output: Intake & Output 12/01/24 12/02/24 12/03/24 12/04/24 23:59 23:59 23:59 23:59 Intake Total 1020 1934 2660 1198 Output Total 600 Balance 420 1934 2660 1198 Meds/Results Medications: Active Medications Generic Name Dose Route Start Last Admin Trade Name Freq PRN Reason Stop Dose Admin Acetaminophen 650 mg 11/29/24 11:00 12/02/24 11:38 Acetaminophen 325 Mg Tablet PO 650 mg Q4H PRN Administration Mild Pain (1-3) or Fever Atorvastatin Calcium 40 mg 11/29/24 21:00 12/03/24 20:32 Atorvastatin 40 Mg Tablet PO 40 mg HS MONI Administration Donepezil HCl 20 mg 11/30/24 09:00 12/04/24 09:18 Donepezil Hcl 10 Mg Tablet PO 20 mg DAILY MONI Administration Duloxetine HCl 60 mg 11/30/24 09:00 12/04/24 09:18 Duloxetine Hcl 60 Mg Capsule.Dr PO 60 mg DAILY MONI Administration Ceftriaxone Sodium 2 gm in 100 mls @ 200 mls/hr 11/30/24 09:00 12/04/24 09:18 Rocephin 2 Gm/Ns 100 Ml IVPB 200 mls/hr Q24H MONI Administration Levothyroxine Sodium 112 mcg 11/30/24 06:30 12/04/24 05:42 Levothyroxine Sodium 112 Mcg Tablet PO 112 mcg DAILY@0630 MONI Administration Loratadine 10 mg 11/30/24 09:00 12/04/24 09:18 Loratadine 10 Mg Tablet PO 10 mg DAILY MONI Administration Lorazepam 0.5 mg 11/29/24 18:35 12/04/24 16:50 Lorazepam (*Crx) 0.5 Mg Tablet PO 0.5 mg TIDWM MONI Administration Metoprolol Succinate 25 mg 11/30/24 09:00 12/04/24 09:16 Metoprolol Succinate Ext Rel 25 Mg Tabcr PO 25 mg DAILY MONI Administration Ondansetron HCl 4 mg 11/29/24 11:00 Ondansetron Inj 4 Mg/2 Ml Vial IV PUSH Q4H PRN Nausea Oxybutynin Chloride 10 mg 11/30/24 09:00 12/04/24 09:18 Oxybutynin Chloride Xl 5 Mg Tab.Er.24 PO 10 mg DAILY MONI Administration Pantoprazole Sodium 40 mg 11/30/24 09:00 12/04/24 09:16 Pantoprazole 40 Mg Tablet PO 40 mg DAILY MONI Administration Quetiapine Fumarate 400 mg 11/29/24 21:00 12/03/24 20:31 Quetiapine Fumarate 100 Mg Tablet PO 400 mg HS MONI Administration Risperidone 0.25 mg 11/29/24 21:00 12/03/24 20:32 Risperidone 0.25 Mg Tablet PO 0.25 mg HS MONI Administration Sertraline HCl 200 mg 11/30/24 09:00 12/04/24 12:54 Sertraline Hcl 50 Mg Tablet PO 200 mg DAILY MONI Administration Temazepam 30 mg 11/29/24 21:00 11/29/24 20:25 Temazepam (*Crx) 15 Mg Capsule PO 30 mg HS MONI Administration Radiology Results: ITS Impressions Head CT 11/29/24 09:33 Impression: No intracranial hemorrhage, mass, or acute infarct. Atrophy and chronic white matter changes, as above. Chest X-Ray 11/29/24 09:55 Impression: Clear lungs. Shoulder X-Ray 11/29/24 09:56 Impression: Unremarkable left shoulder radiographs. Chest/Abdomen/Pelvis CT 11/29/24 09:59 Impression: Findings suspicious for left pyelonephritis and probable ascending infection involving the urothelium of the left ureter. Cystitis. Multiple compression fractures, as detailed above, age-indeterminate. Correlate with clinical symptomatology. Consider MR to evaluate for acute marrow edema as indicated. Cervical Spine CT 11/29/24 10:04 Impression: No fracture or subluxation of the cervical spine. Advanced degenerative spondylosis, as detailed above.
[2024-12-04 19:44] VITALS: PULSE 92; O2SAT 94
[2024-12-04] MEDS: risperiDONE 0.25 MG TABLET PO (20:06)
[2024-12-04] MEDS: ATORVASTATIN 40 MG TABLET PO (20:06)
[2024-12-04] MEDS: QUEtiapine FUMARATE 100 MG TABLET 400 MG PO (20:07)
[2024-12-04 20:47] VITALS: BP 109/52; PULSE 89; RESP 16; TEMP 37.1; O2SAT 94
[2024-12-05 05:24] VITALS: BP 110/69; PULSE 78; RESP 17; TEMP 37; O2SAT 90
[2024-12-05] MEDS: LEVOTHYROXINE SODIUM 112 MCG TABLET PO (05:32)
[2024-12-05 05:51] LABS: Basophils Absolute Auto 0.1 K/mm3 (0.0-0.1); Basophils Percent Auto 0.6 % (0.2-1.2); Eosinophils Absolute Auto 0.3 K/mm3 (0-0.3); Hematocrit 26.7 % (37.0-47.0); Hemoglobin 8.1 g/dL (12.0-15.0); Immature Granulocyte Absolute 0.72 K/mm3 (0.00-0.031); Immature Granulocyte Percent A 5.1 % (0-0.5); Lymphocytes Percent Auto 16.9 % (18.3-44.2); Mean Corpuscular HGB Conc 30.3 g/dl (32-36); Mean Corpuscular Volume 102.3 fl (80-100); Mean Platelet Volume 11.8 fl (7.4-10.4); Monocytes Absolute Auto 1.9 K/mm3 (0.1-0.6); Monocytes Percent Auto 13.1 % (2.6-8.5); Neutrophils Absolute Auto 8.8 K/mm3 (1.3-6.7); Neutrophils Percent Auto 62.3 % (45.5-73.1); Platelet Count Result 453 k/mm3 (150-375); Red Blood Count 2.61 M/mm3 (4.2-5.4); Red Cell Distribution Width 18.6 % (11.5-14.5); White Blood Count 14.2 K/mm3 (4.5-10.0)
[2024-12-05 06:02] LABS: Alanine Aminotransferase 23 U/L (6-35); Albumin Level 3.2 g/dL (3.5-5.1); Alkaline Phosphatase 118 U/L (38-126); Anion Gap 6 mmol/L (4-12); Aspartate Amino Transferase 28 U/L (14-36); Bilirubin,Total 0.2 mg/dL (0.2-1.3); Blood Urea Nitrogen 26 mg/dL (7-17); Calcium 8.8 mg/dL (8.4-10.2); Carbon Dioxide 33 mmol/L (22-30); Chloride 100 mmol/L (98-107); Estimated Glomerular Filt Rate > 60; Glucose 107 mg/dL (65-110); Magnesium 2.1 mg/dL (1.6-2.3); Potassium 4.1 mmol/L (3.4-5.0); Sodium 139 mmol/L (137-145)
[2024-12-05 06:46] LABS: Acanthocytes 1+; Anisocytosis 1+; Hypochromasia 1+; Platelet Estimate Increased (Adequate); Schistocytes 1+; Target Cells 1+; Tear Drop Cells 1+
[2024-12-05 08:36] VITALS: PULSE 79
[2024-12-05] MEDS: DULoxetine HCL 60 MG CAPSULE.DR PO (08:36)
[2024-12-05] MEDS: DONEPEZIL HCL 10 MG TABLET 20 MG PO (08:36)
[2024-12-05] MEDS: LORazepam (*CRX) 0.5 MG TABLET PO ×3 (08:36→17:10)
[2024-12-05] MEDS: LORATADINE 10 MG TABLET PO (08:36)
[2024-12-05] MEDS: METOPROLOL SUCCINATE EXT REL 25 MG TABCR PO (08:36)
[2024-12-05] MEDS: PANTOPRAZOLE 40 MG TABLET PO (08:37)
[2024-12-05] MEDS: oxyBUTYnin CHLORIDE XL 5 MG TAB.ER.24 10 MG PO (08:37)
[2024-12-05] MEDS: SERTRALINE HCL 50 MG TABLET 200 MG PO (08:37)
[2024-12-05] MEDS: cefTRIAXone 2 GM/NS 100 ML 2 GM/100 ML BAG IVPB (08:38)
[2024-12-05 08:40] VITALS: O2SAT 90
--- NOTE | 2024-12-05 11:23 | PCNFU ---
Nutrition Follow-Up Complete: Suboptimal po intake related to appetite as evidenced by pt report, charted intake and observation PO intake 50% or greater - Progressing. Intakes are 40-100%. Continue with same goal Goal: Pt current nutrition is Heart healthy diet. Ensure Enlive BID (350 kcal, 20 g protein each). Nutrition recommendation: No new recommendations. Continue current nutrition care plan and orders. Agree with orders Last recorded weight is 54.8 kg. Bowel Motility: Last BM +1 12/03/24 Labs Reviewed: Hgb 8.1, Hct 26.7, Alb 3.2, BUN 26 Meds Noted: Protonix, Zofran Skin: No skin issues Additional Notes: Progressing with intakes. Improved to 40-100% in the last 48 hours. Continue current care plan and orders. Monitor intake, wt, labs. Follow up in 5 days.
[2024-12-05 14:00] VITALS: BP 103/67; PULSE 86; RESP 18; TEMP 36.7; O2SAT 98
--- NOTE | 2024-12-05 14:39 | PM.IMPN ---
Progress Note: A&P Assessment and Plan (1) Acute pyelonephritis: Code(s): N10 - Acute pyelonephritis Status: Acute (2) Atrial fibrillation: Qualifiers: Atrial fibrillation type: unspecified Qualified Code(s): I48.91 - Unspecified atrial fibrillation Code(s): I48.91 - Unspecified atrial fibrillation Status: Acute Plan 88 y/o F with PMH of atrial fibrillation on anticoagulation, cholecystectomy, and hysterectomy presents here with ground level fall and drowsiness. The patient presents here from home via EMS on 11/29 for further evaluation post ground level fall and for drowsiness. She reports this morning she had a fall out of bed due to her left arm giving out. She does not believe she had a head strike or loss of consciousness. Reports she fell into the mattress and had left shoulder pain She reports the drowsiness has been ongoing, reports this is chronic for her because she is up early and cant sleep. She denies accompanying dysuria, urinary frequency, abdominal pain, nausea, vomiting, diarrhea, fever or chills. She reported a history of atrial fibrillation upon arrival - reports no knowledge now, arrived with a heart rate of 116 and EKG showed AFib RVR. She reports missed morning dose of her anti-dysrhythmic. She reports chronic pain in her back, reports it has been worse since she stopped therapy. Patient lives at home alone and uses a walker and occasionally a wheelchair. Initial VS at presentation: 97.6? F, HR 116, R 22, 90/64, and 97% on RA. ED workup showed: WBC 14.5, hemoglobin 10.1 (no previous available for comparison), creatinine 1.5 and GFR 44, magnesium 2.5, initial troponin 0.024, UA consistent with UTI. Viral PCR negative. Head CT showed no intracranial hemorrhage/mass/acute infarct and atrophy/chronic white matter changes. CXR showed clear lungs. Shoulder XR of the left was unremarkable. CT of the chest/abdomen/pelvis showed findings suspicious for left pyelonephritis and probable ascending infection involving the urothelium of the left ureter, cystitis, multiple compression fractures that are age indeterminate. C-spine CT showed no fracture subluxations cervical spine and advanced degenerative spondylosis. Generalized weakness Altered mental status will hold risperidone temazepam and Seroquel. Continue Ativan as chronic benzodiazepine use. Much improved. UTI/left pyelonephritis urine culture with E coli. Continue on IV. No oral antibiotics option. continue 12/13 anticipated course. Leukocytosis worsened today. Will recheck ultrasound kidneys. No other source of infection evident clinically. Will continue to monitor Atrial fibrillation on anticoagulation Diet: Heart healthy GI Prophylaxis: Not currently indicated DVT Prophylaxis: SCDs Lines/Tubes: Peripheral IV Code Status: Full code Subjective Date/time seen: 12/05/24 14:39 Interval history: No overnight events no new complaints remains afebrile. Denies any pain. Review of Systems Review of Systems: All systems reviewed & are unremarkable except as noted in HPI and below Exam Narrative: GENERAL: Frail-appearing, well-nourished, and in no acute distress. HEAD: Normocephalic, atraumatic. EYES: PERRLA and EOMI. ENT: Nares clear, no rhinorrhea or epistaxis. Mucous membranes moist. NECK: Supple. CHEST: Clear to auscultation. No respiratory distress. HEART: Regular rate and rhythm. No murmur heard. Normal peripheral pulses. ABDOMEN: Soft, nontender, nondistended, normal active bowel sounds. EXTREMITIES: Normal range of motion. No edema. SKIN: Warm, dry, no rash. NEURO: No focal deficits. Awake and alert follows commands PSYCH: Flat affect Objective Data Vital Signs Vital Signs: Vital Signs - 24 hr 12/04/24 19:44 12/04/24 20:47 12/05/24 05:24 Temperature 98.8 F 98.6 F Pulse Rate 92 89 78 Respiratory Rate 16 17 Blood Pressure 109/52 L 110/69 Pulse Oximetry 94 94 90 Oxygen Delivery Room Air Fraction of Inspired Oxygen 21 12/05/24 08:36 12/05/24 08:40 Temperature Pulse Rate 79 Respiratory Rate Blood Pressure Pulse Oximetry 90 Oxygen Delivery Room Air Fraction of Inspired Oxygen Intake/Output Intake/Output: Intake & Output 12/02/24 12/03/24 12/04/24 12/05/24 23:59 23:59 23:59 23:59 Intake Total 1933 8497 7747 020 Balance 1933 2871 1589 337 Meds/Results Medications: Active Medications Generic Name Dose Route Start Last Admin Trade Name Freq PRN Reason Stop Dose Admin Acetaminophen 650 mg 11/29/24 11:00 12/02/24 11:38 Acetaminophen 325 Mg Tablet PO 650 mg Q4H PRN Administration Mild Pain (1-3) or Fever Atorvastatin Calcium 40 mg 11/29/24 21:00 12/04/24 20:06 Atorvastatin 40 Mg Tablet PO 40 mg HS MOIN Administration Donepezil HCl 20 mg 11/30/24 09:00 12/05/24 08:36 Donepezil Hcl 10 Mg Tablet PO 20 mg DAILY MONI Administration Duloxetine HCl 60 mg 11/30/24 09:00 12/05/24 08:36 Duloxetine Hcl 60 Mg Capsule.Dr PO 60 mg DAILY MONI Administration Ceftriaxone Sodium 2 gm in 100 mls @ 200 mls/hr 11/30/24 09:00 12/05/24 08:38 Rocephin 2 Gm/Ns 100 Ml IVPB 12/08/24 09:29 200 mls/hr Q24H MONI Administration Levothyroxine Sodium 112 mcg 11/30/24 06:30 12/05/24 05:32 Levothyroxine Sodium 112 Mcg Tablet PO 112 mcg DAILY@0630 MONI Administration Loratadine 10 mg 11/30/24 09:00 12/05/24 08:36 Loratadine 10 Mg Tablet PO 10 mg DAILY MONI Administration Lorazepam 0.5 mg 11/29/24 18:35 12/05/24 12:46 Lorazepam (*Crx) 0.5 Mg Tablet PO 0.5 mg TIDWM MONI Administration Metoprolol Succinate 25 mg 11/30/24 09:00 12/05/24 08:36 Metoprolol Succinate Ext Rel 25 Mg Tabcr PO 25 mg DAILY MONI Administration Ondansetron HCl 4 mg 11/29/24 11:00 Ondansetron Inj 4 Mg/2 Ml Vial IV PUSH Q4H PRN Nausea Oxybutynin Chloride 10 mg 11/30/24 09:00 12/05/24 08:37 Oxybutynin Chloride Xl 5 Mg Tab.Er.24 PO 10 mg DAILY MONI Administration Pantoprazole Sodium 40 mg 11/30/24 09:00 12/05/24 08:37 Pantoprazole 40 Mg Tablet PO 40 mg DAILY MONI Administration Quetiapine Fumarate 400 mg 11/29/24 21:00 12/04/24 20:07 Quetiapine Fumarate 100 Mg Tablet PO 400 mg HS MONI Administration Risperidone 0.25 mg 11/29/24 21:00 12/04/24 20:06 Risperidone 0.25 Mg Tablet PO 0.25 mg HS MONI Administration Sertraline HCl 200 mg 11/30/24 09:00 12/05/24 08:37 Sertraline Hcl 50 Mg Tablet PO 200 mg DAILY MONI Administration Temazepam 30 mg 11/29/24 21:00 11/29/24 20:25 Temazepam (*Crx) 15 Mg Capsule PO 30 mg HS MONI Administration Radiology Results: ITS Impressions Head CT 11/29/24 09:33 Impression: No intracranial hemorrhage, mass, or acute infarct. Atrophy and chronic white matter changes, as above. Chest X-Ray 11/29/24 09:55 Impression: Clear lungs. Shoulder X-Ray 11/29/24 09:56 Impression: Unremarkable left shoulder radiographs. Chest/Abdomen/Pelvis CT 11/29/24 09:59 Impression: Findings suspicious for left pyelonephritis and probable ascending infection involving the urothelium of the left ureter. Cystitis. Multiple compression fractures, as detailed above, age-indeterminate. Correlate with clinical symptomatology. Consider MR to evaluate for acute marrow edema as indicated. Cervical Spine CT 11/29/24 10:04 Impression: No fracture or subluxation of the cervical spine. Advanced degenerative spondylosis, as detailed above. Renal Ultrasound 12/05/24 12:02 Impression: 1: Unremarkable renal ultrasound. No stones, masses or hydronephrosis. Labs Labs: Laboratory Results - last 24 hr 12/05/24 05:27 WBC 14.2 H RBC 2.61 L Hgb 8.1 L Hct 26.7 L MCV 102.3 H MCH 31.0 MCHC 30.3 L RDW 18.6 H Plt Count 453 H MPV 11.8 H Immature Gran % (Auto) 5.1 H Neut % (Auto) 62.3 Lymph % (Auto) 16.9 L [place] % (Auto) 13.1 H Eos % (Auto) 2.0 Baso % (Auto) 0.6 Lymph # (Auto) 2.40 [place] # (Auto) 1.9 H Eos # (Auto) 0.3 Baso # (Auto) 0.1 Abs Immat Gran (auto) 0.72 H Absolute Neuts (auto) 8.8 H Absolute Nucleated RBC 0.000 Band Neutrophils % Not Reportable Nucleated RBC % 0.0 Platelet Estimate Increased Hypochromasia 1+ Anisocytosis 1+ Target Cells 1+ Tear Drop Cells 1+ Acanthocytes (Spur) 1+ Schistocytes 1+ Sodium 139 Potassium 4.1 Chloride 100 Carbon Dioxide 33 H Anion Gap 6 BUN 26 H Creatinine 0.76 Estim Creat Clear Calc Not Reportable Estimated GFR > 60 Glucose 107 Calcium 8.8 Magnesium 2.1 Total Bilirubin 0.2 AST 28 ALT 23 Alkaline Phosphatase 118 Total Protein 6.0 L Albumin 3.2 L
[2024-12-05 17:55] LABS: Add Urine Microscopic? YES; Appearance Urine Clear (Clear); Bacteria Urine 1+ /hpf; Bilirubin Urine Negative (Negative); Blood Urine Negative (Negative); Budding Yeast Urine Present /hpf; Color Urine Yellow (Yellow); Glucose Urine UA Negative (Negative); Ketones Urine Negative (Negative); Leukocyte Esterase Ur 2+ LEU/UL (Negative); Nitrate Urine Negative (Negative); Non Pathogenic Casts 0-2; Protein Urine Trace mg/dL (Negative); RBC Urine 21-50 /hpf (0-2); Squamous Epithelial Cell Urine None Seen /hpf (Few); Urobilinogen Urine 0.2 mg/dL (<2.0); WBC Urine 21-50 /hpf (0-3); pH Urine 7.5 (5.0-9.0)
[2024-12-05 19:56] VITALS: BP 98/63; PULSE 83; RESP 18; TEMP 36.9; O2SAT 94
[2024-12-05] MEDS: risperiDONE 0.25 MG TABLET PO (20:27)
[2024-12-05] MEDS: QUEtiapine FUMARATE 100 MG TABLET 400 MG PO (20:27)
[2024-12-05] MEDS: ATORVASTATIN 40 MG TABLET PO (20:27)
[2024-12-05 22:08] VITALS: O2SAT 98
[2024-12-06] MEDS: LEVOTHYROXINE SODIUM 112 MCG TABLET PO (05:35)
[2024-12-06 05:59] VITALS: BP 109/66; PULSE 81; RESP 18; TEMP 36.6; O2SAT 91
[2024-12-06 07:04] LABS: Basophils Absolute Auto 0.1 K/mm3 (0.0-0.1); Basophils Percent Auto 0.7 % (0.2-1.2); Eosinophils Absolute Auto 0.3 K/mm3 (0-0.3); Eosinophils Percent Auto 2.3 % (0-4.4); Hemoglobin 8.2 g/dL (12.0-15.0); Immature Granulocyte Absolute 0.51 K/mm3 (0.00-0.031); Immature Granulocyte Percent A 4.2 % (0-0.5); Lymphocytes Absolute Auto 2.73 K/mm3 (0.9-3.2); Lymphocytes Percent Auto 22.3 % (18.3-44.2); Mean Corpuscular HGB Conc 30.4 g/dl (32-36); Mean Corpuscular Hemoglobin 31.1 pg (26-34); Mean Corpuscular Volume 102.3 fl (80-100); Mean Platelet Volume 11.9 fl (7.4-10.4); Monocytes Absolute Auto 1.5 K/mm3 (0.1-0.6); Neutrophils Absolute Auto 7.2 K/mm3 (1.3-6.7); Neutrophils Percent Auto 58.5 % (45.5-73.1); Platelet Count Result 468 k/mm3 (150-375); Red Blood Count 2.64 M/mm3 (4.2-5.4); Red Cell Distribution Width 18.5 % (11.5-14.5); White Blood Count 12.2 K/mm3 (4.5-10.0)
[2024-12-06 07:09] LABS: Alanine Aminotransferase 23 U/L (6-35); Albumin Level 3.4 g/dL (3.5-5.1); Alkaline Phosphatase 119 U/L (38-126); Anion Gap 4 mmol/L (4-12); Aspartate Amino Transferase 33 U/L (14-36); Bilirubin,Total 0.2 mg/dL (0.2-1.3); Blood Urea Nitrogen 28 mg/dL (7-17); Calcium 9.1 mg/dL (8.4-10.2); Carbon Dioxide 35 mmol/L (22-30); Chloride 99 mmol/L (98-107); Estimated Glomerular Filt Rate > 60; Glucose 94 mg/dL (65-110); Magnesium 2.2 mg/dL (1.6-2.3); Potassium 4.4 mmol/L (3.4-5.0); Sodium 138 mmol/L (137-145)
[2024-12-06] MEDS: oxyBUTYnin CHLORIDE XL 5 MG TAB.ER.24 10 MG PO (09:12)
[2024-12-06] MEDS: SERTRALINE HCL 50 MG TABLET 200 MG PO (09:12)
[2024-12-06] MEDS: cefTRIAXone 2 GM/NS 100 ML 2 GM/100 ML BAG IVPB (09:12)
[2024-12-06 09:13] VITALS: PULSE 86
[2024-12-06] MEDS: LORazepam (*CRX) 0.5 MG TABLET PO ×2 (09:13→12:14)
[2024-12-06] MEDS: DULoxetine HCL 60 MG CAPSULE.DR PO (09:13)
[2024-12-06] MEDS: METOPROLOL SUCCINATE EXT REL 25 MG TABCR PO (09:13)
[2024-12-06] MEDS: PANTOPRAZOLE 40 MG TABLET PO (09:13)
[2024-12-06] MEDS: DONEPEZIL HCL 10 MG TABLET 20 MG PO (09:13)
[2024-12-06] MEDS: LORATADINE 10 MG TABLET PO (09:13)
[2024-12-06 09:15] VITALS: O2SAT 91
--- NOTE | 2024-12-06 13:02 | PM.DS ---
DS: Admitting Diagnosis Discharge Date 12/06/2024 Admitting Diagnosis Altered mental status DS: Discharge Diagnosis Discharge Diagnosis (1) Acute pyelonephritis: Code(s): N10 - Acute pyelonephritis Status: Acute (2) Atrial fibrillation: Qualifiers: Atrial fibrillation type: unspecified Qualified Code(s): I48.91 - Unspecified atrial fibrillation Code(s): I48.91 - Unspecified atrial fibrillation Status: Acute DS: Summary Hospital Course Hospital Course: 88 y/o F with PMH of atrial fibrillation on anticoagulation, cholecystectomy, and hysterectomy presents here with ground level fall and drowsiness. The patient presents here from home via EMS on 11/29 for further evaluation post ground level fall and for drowsiness. She reports this morning she had a fall out of bed due to her left arm giving out. She does not believe she had a head strike or loss of consciousness. Reports she fell into the mattress and had left shoulder pain She reports the drowsiness has been ongoing, reports this is chronic for her because she is up early and cant sleep. She denies accompanying dysuria, urinary frequency, abdominal pain, nausea, vomiting, diarrhea, fever or chills. She reported a history of atrial fibrillation upon arrival - reports no knowledge now, arrived with a heart rate of 116 and EKG showed AFib RVR. She reports missed morning dose of her anti-dysrhythmic. She reports chronic pain in her back, reports it has been worse since she stopped therapy. Patient lives at home alone and uses a walker and occasionally a wheelchair. Initial VS at presentation: 97.6? F, HR 116, R 22, 90/64, and 97% on RA. ED workup showed: WBC 14.5, hemoglobin 10.1 (no previous available for comparison), creatinine 1.5 and GFR 44, magnesium 2.5, initial troponin 0.024, UA consistent with UTI. Viral PCR negative. Head CT showed no intracranial hemorrhage/mass/acute infarct and atrophy/chronic white matter changes. CXR showed clear lungs. Shoulder XR of the left was unremarkable. CT of the chest/abdomen/pelvis showed findings suspicious for left pyelonephritis and probable ascending infection involving the urothelium of the left ureter, cystitis, multiple compression fractures that are age indeterminate. C-spine CT showed no fracture subluxations cervical spine and advanced degenerative spondylosis. Generalized weakness Altered mental status will hold risperidone temazepam and Seroquel. Continue Ativan as chronic benzodiazepine use. Much improved with treatment of UTI. Risperidone and Seroquel resumed UTI/left pyelonephritis urine culture with E coli. Continue on IV. No oral antibiotics option. continue 01/12 anticipated course. Leukocytosis worsened however now stable. Recheck ultrasound with no acute findings. Repeat urine urine WBC however it still persists. Will finish this 10 days course of IV antibiotics as planned at the nursing facility Atrial fibrillation not on on anticoagulation likely due to fall risk Diet: Heart healthy GI Prophylaxis: Not currently indicated DVT Prophylaxis: SCDs Lines/Tubes: Peripheral IV Code Status: Full code Time Spent with Patient Time attestation: Total time spent providing and/or coordinating discharge services: 40 minutes Exam Narrative: GENERAL: Frail-appearing, well-nourished, and in no acute distress. HEAD: Normocephalic, atraumatic. EYES: PERRLA and EOMI. ENT: Nares clear, no rhinorrhea or epistaxis. Mucous membranes moist. NECK: Supple. CHEST: Clear to auscultation. No respiratory distress. HEART: Regular rate and rhythm. No murmur heard. Normal peripheral pulses. ABDOMEN: Soft, nontender, nondistended, normal active bowel sounds. EXTREMITIES: Normal range of motion. No edema. SKIN: Warm, dry, no rash. NEURO: No focal deficits. Awake and alert follows commands PSYCH: Flat affect DS: Data Data Completed and Pending Labs on day of discharge: Labs from last 24 hours 12/06/24 12/05/24 05:43 17:37 WBC 12.2 H RBC 2.64 L Hgb 8.2 L Hct 27.0 L MCV 102.3 H MCH 31.1 MCHC 30.4 L RDW 18.5 H Plt Count 468 H MPV 11.9 H Immature Gran % (Auto) 4.2 H Neut % (Auto) 58.5 Lymph % (Auto) 22.3 [place] % (Auto) 12.0 H Eos % (Auto) 2.3 Baso % (Auto) 0.7 Lymph # (Auto) 2.73 [place] # (Auto) 1.5 H Eos # (Auto) 0.3 Baso # (Auto) 0.1 Abs Immat Gran (auto) 0.51 H Absolute Neuts (auto) 7.2 H Absolute Nucleated RBC 0.000 Nucleated RBC % 0.0 Sodium 138 Potassium 4.4 Chloride 99 Carbon Dioxide 35 H Anion Gap 4 BUN 28 H Creatinine 0.82 Estim Creat Clear Calc Not Reportable Estimated GFR > 60 Glucose 94 Calcium 9.1 Magnesium 2.2 Total Bilirubin 0.2 AST 33 ALT 23 Alkaline Phosphatase 119 Total Protein 7.0 Albumin 3.4 L Urine Color Yellow Urine Appearance Clear Urine pH 7.5 Ur Specific [place] 1.010 Urine Protein Trace Urine Glucose (UA) Negative Urine Ketones Negative Ur Blood (Man) Negative Urine Nitrate Negative Urine Bilirubin Negative Urine Urobilinogen 0.2 Leukocyte Esterase Rfl 2+ H Urine RBC 21-50 H Urine WBC 21-50 H Ur Squamous Epith Cells None seen Urine Bacteria 1+ H Urine Casts 0-2 Urine Yeast (Budding) Present H Imaging Radiologist's impression: ITS Impressions Head CT 11/29/24 09:33 Impression: No intracranial hemorrhage, mass, or acute infarct. Atrophy and chronic white matter changes, as above. Chest X-Ray 11/29/24 09:55 Impression: Clear lungs. Shoulder X-Ray 11/29/24 09:56 Impression: Unremarkable left shoulder radiographs. Chest/Abdomen/Pelvis CT 11/29/24 09:59 Impression: Findings suspicious for left pyelonephritis and probable ascending infection involving the urothelium of the left ureter. Cystitis. Multiple compression fractures, as detailed above, age-indeterminate. Correlate with clinical symptomatology. Consider MR to evaluate for acute marrow edema as indicated. Cervical Spine CT 11/29/24 10:04 Impression: No fracture or subluxation of the cervical spine. Advanced degenerative spondylosis, as detailed above. Renal Ultrasound 12/05/24 12:02 Impression: 1: Unremarkable renal ultrasound. No stones, masses or hydronephrosis. Discharge Plan Discharge Attending physician on discharge: Alvarez Velasquez Discharging Clinician: Alvarez Velasquez Anticipated Discharge Date/Time: 12/06/24 13:08 Patient Disposition: Home Activity: as tolerated Diet: heart healthy Discharge Instructions: continue iv antibiotics through peripheral line until 12/09/2024 Patient Instructions: Antibiotic Form Patient Language: Vietnamese Stand Alone Forms: General Discharge Information Follow-up/Referrals: Rashid,Eldon Murry MD [Primary Care Provider] - 1 Week Discharge Medications: New ceftriaxone 2 gram Recon Soln 2 g IV Q24H Qty: 3 0RF Continued quetiapine 400 mg tablet 400 mg PO HS oxybutynin chloride 10 mg tablet extended release 24hr 10 mg PO DAILY atorvastatin 40 mg tablet 40 mg PO HS donepezil 10 mg tablet 20 mg PO DAILY cetirizine 10 mg tablet 5 mg PO DAILY metoprolol succinate 25 mg tablet extended release 24 hr 25 mg PO DAILY levothyroxine 112 mcg tablet 112 mcg PO DAILY sertraline 100 mg tablet 200 mg PO DAILY risperidone 0.25 mg tablet 0.25 mg PO HS duloxetine 60 mg capsule,delayed release(DR/EC) 60 mg PO DAILY lorazepam 0.5 mg tablet 0.5 mg PO TIDWM omeprazole 20 mg capsule,delayed release(DR/EC) 20 mg PO DAILY Discontinued temazepam 30 mg capsule 30 mg PO HS Other Ambulatory Orders: Complete Blood Count with Diff (Routine) Timeframe: 1 Week Location: Determined by Patient Ordered By: Alvarez Velasquez Comprehensive Metabolic Panel (Routine) Timeframe: 1 Week Location: Determined by Patient Ordered By: Alvarez Velasquez Date of admission: 11/30/24 09:13 Primary Care Provider: Rashid,Eldon Murry Admitting Provider: Katarina Edwards Attending physician on admission: Katarina Edwards Condition: Stable
[2024-12-06 13:52] VITALS: BP 108/60; PULSE 83; RESP 18; TEMP 36.3; O2SAT 97
== END 2024-12-06 16:33 | DRG 690 ==
LOC: ANHED 10:48 → ANHIMU 13:50 → ANH3MED 12-01 15:26 → ANHIMU 12-07 13:45
PROVIDERS: Student in an Organized Health Care Education/Training Program; Admitting Provider Family Medicine; Emergency Provider Emergency Medicine; PCP Emergency Medicine; Visit Provider Internal Medicine
DX: N10 Acute pyelonephritis (principal); B96.20 Unspecified Escherichia coli [E. coli] as the cause of diseases classified elsewhere; I48.91 Unspecified atrial fibrillation; W06.XXXA Fall from bed, initial encounter; R29.6 Repeated falls; E03.9 Hypothyroidism, unspecified; M25.512 Pain in left shoulder; Z90.710 Acquired absence of both cervix and uterus; Z90.49 Acquired absence of other specified parts of digestive tract
CPT/HCPCS: 36415; 36600; 70450; 71045; 71260; 72125; 73030; 74177; 76775; 80048; 80053; 81001; 82550; 82805; 83605; 83735; 84145; 84484; 85018; 85025; 85610; 85730; 87040; 87086; 87181; 87186; 87637; 93005; 96361; 96365; 96375; 97110; 97162; 97166; 97530; 97535; 99285; A9270; G0378; J0696; J3480; J7030; J7040; Q9967